=== PATIENT | female | born 1960 | race Caucasian/White ===

== ENCOUNTER 2024-07-15 12:07 | Inpatient (IN) ==
[~2024-07-15 12:07] MED LIST: ATROPINE SULFATE 0.1 MG/ML 10ML SYR IV ONE; ETOMIDATE 2 MG/ML 20 ML VIAL IV ONE; LIDOCAINE 2% 20 MG/ML 5 ML SYR IV ONE; MIDAZOLAM HCL 5 MG/ML 2ML VIAL IV ONE; SODIUM BICARB 8.4% INJ 50 MEQ/50 ML SYR IV ONE; SODIUM CHLORIDE 0.9% 10ML FLUSH IV ONE; SUCCINYLCHOLINE CHLORIDE 20 MG/ML 10 ML VIAL IV ONE
--- NOTE | 2024-07-15 12:15 | Emergency Department Note ---
Impression & Plan ST elevation (STEMI) myocardial infarction, Chest pain ED Provider Note HISTORY OF PRESENT ILLNESS: Patient is a 64-year-old female presenting with chest pain. Patient was a prehospital heart alert based on EKG done prehospital which showed ST elevations in leads V2 through V5 6. Patient states she got up this morning and then around 10 AM she developed a significant pressure sensation in her substernal chest. Reports symptoms continued and she called 911. She was found to to have an EKG with ST elevations prehospital. She was given 324 mg of oral aspirin and was given nitroglycerin per protocols, with little relief in her chest pain. On arrival to the ER, she locates the pain to the substernal region and states it radiates into her back. Denies any significant shortness of breath. She is on Coumadin for history of liver thrombus. She states her last dose was last night. Denies any nausea or vomiting. Denies any history of cardiac stents. She currently rates the pain a 9 out of 10. ROS: as above PHYSICAL EXAM: Constitutional: Patient appears in no acute distress. HENT: Head: Normocephalic and atraumatic. Eyes: EOMI, PERRL Mouth/Throat: Mucous membranes moist. Neck: Trachea midline. Neck supple. Cardiovascular: RRR, No murmurs, rubs or gallops. Intact distal pulses. Pulmonary/Chest: No respiratory distress. Breath sounds clear and equal bilaterally. No wheezes or rales. Abdominal: Abdomen soft, no tenderness, rebound or guarding. Musculoskeletal: No edema, tenderness or deformity noted. Skin: Warm and dry. No rash, erythema, pallor or cyanosis Psychiatric: Appropriate mood and affect for situation. Neurological: Alert and keenly responsive. CN II-XII grossly intact, moving all extremities equally and fully. MDM: - Vitals signs stable - History obtained via patient. History as above. - Patient alerted as a HEART alert patient based on pre-hospital EKG showing STEMI. - Chronic conditions affecting care: CKD; HTN; HLD; hypothyroidism; CAD; hx of liver thrombus - Differential diagnoses include, but are not limited to: Acute coronary syndrome; pulmonary embolism; dissection; tension pneumothorax; esophageal rupture; pneumonia - Order placed for continuous cardiac monitoring. At this time, monitor showed rate of 91 bpm with normal sinus rhythm, per my interpretation. - External medical records reviewed. Anticoagulation note dated 06/22/2024 was reviewed. Patient's INR is therapeutic at 3.0 at that visit. - Prehospital EKG obtained at 11:39 AM interpreted by myself showed normal sinus rhythm. Noted to have ST elevations in leads V2 through V6. - Discussed case with ground support equipment fitter, Dr. Mora, at 12:00. - EKG interpreted by myself showed normal sinus rhythm. Noted to have ST elevations in the 2 through V6. - Laboratory workup interpreted by myself showed normal WBC; stable electrolytes; elevated troponin (1165.5) - Hospitalist consulted for admission post laborer heading procedure. - Patient was taken to the Backup Operator with ground support equipment fitter, Dr. Mora. To be admitted to hospital service postcatheterization. I have personally spent 33 minutes of critical care time in the direct management of this patient. This includes bedside care, interpretation of diagnostic studies, and testing, discussion with consultants, patient, and family members, and other required patient management activities. This 33 minutes is in excess of all separately billable procedures. ASSESSMENT AND PLAN: Diagnosis: STEMI; chest pain Plan: to laborer heading Past Med/Surg History Problem List (Updated 07/15/24 @ 12:41 by Karely Chao PA-C) STEMI (ST elevation myocardial infarction) Urgency incontinence Kidney stones hx Anemia PAUL (acute kidney injury) Obesity Hypersomnia Suspected sleep apnea Acid reflux Nausea & vomiting Atherogenic dyslipidemia Hypomagnesemia Epigastric burning sensation Anxiety and depression HLD (hyperlipidemia) Hypokalemia Hypothyroidism (Chronic) Chronic anticoagulation (Chronic) Cigarette smoker Constipation Esophageal varices Diabetes mellitus Hypertension Lupus anticoagulant disorder CKD (chronic kidney disease) stage 3, GFR 30-59 ml/min Gastric varices Nonalcoholic fatty liver disease (Chronic) DDD (degenerative disc disease) Cirrhosis (Chronic) Medical History (Updated 07/15/24 @ 12:41 by Karely Chao PA-C) CAD (coronary artery disease) Optimized medical management per records Mild nonocclusive coronary disease in the past reported (details unknown) per cardio records Degenerative disc disease Hx of encephalopathy hx of hepatic encephalopathy Hx of thrombosis "liver" - reason for warfarin - pt unsure of year GERD (gastroesophageal reflux disease) Hx of temporomandibular joint disorder (03/27/23) hx of pain when opening, treated at [facility] emergency room on 03/27/23. no problems since. 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 Surgical History S/P cystoscopy with ureteral stent placement 02-02-24 @ [facility] History of dilatation and curettage x2 S/P debridement necrotizing fascitis debridement (multiple) Hx of umbilical hernia repair x3 History of esophagogastroduodenoscopy (EGD) History of colonoscopy History of cataract surgery bilateral History of cervical spinal surgery with hardware (fusion unsure of levels) limited ROM side to side History of cardiac catheterization ~2015 in [facility] - no stents Family History Sister History of anesthesia reaction has difficulty waking up (never re-intubated) and PONV Denies family history of Ovarian cancer Crohn's disease Breast cancer Colorectal cancer Ulcerative colitis Social History Smoking Status: Current every day smoker Tobacco Type: Cigarettes packs per day: 0.5; Cigarettes Per Day: 10 (advised on policy); Second Hand Exposure: Yes; Do You Dip or Chew Tobacco: No; Hx Alcohol Use: No Hx Substance Use: No Preferred Language: Welsh Travel Cota Required: No Beliefs That Will Affect Care: None marital status: Current Living Situation: Spouse current occupational status: retired Feels Safe at Home: Yes Childhood Exposure to Second-Hand Smoke: Yes caffeine: Yes Dental Care, Regularly: No Assistive Devices: Denture - Upper, Denture - Lower, Glasses and Walker Allergies Allergies Allergy/AdvReac Type Severity Reaction Status Date / Time adhesive Allergy Intermediate Rash Verified 06/12/24 13:56 enoxaparin [From Lovenox] Allergy Intermediate Rash Verified 06/12/24 13:56 NSAIDS (Non-Steroidal Allergy Unknown can't take Verified 06/12/24 13:56 Anti-Inflamma d/t taking a blood thinner nadolol AdvReac Severe Seizure Verified 06/12/24 13:56 amoxicillin [From Augmentin] AdvReac Mild yeast Verified 06/12/24 13:56 infection clavulanic acid AdvReac Mild yeast Verified 06/12/24 13:56 [From Augmentin] infection Home Meds Home Medications Medication Instructions Recorded Confirmed baclofen 10 mg tablet 10 mg PO TID 06/04/22 06/22/24 lactulose 10 gram/15 mL oral 10 g PO QDL PRN Constipation 09/24/22 06/22/24 solution magnesium oxide 400 mg PO QAM 03/27/23 06/22/24 Previous Rx's Medication Instructions Recorded pantoprazole 40 mg tablet,delayed 40 mg PO BID #180 tabs 09/29/23 release hydrochlorothiazide 12.5 mg tablet 12.5 mg PO QAM #90 tabs 02/16/24 loratadine 10 mg tablet 10 mg PO QAM #90 tabs 03/16/24 oxybutynin chloride 5 mg tablet 5 mg PO QAM #90 tabs 03/16/24 famotidine 40 mg tablet 40 mg PO DAILY PRN breakthrough 04/13/24 acid reflux #30 tabs atorvastatin 10 mg tablet 10 mg PO QPM #90 tabs 05/09/24 citalopram 10 mg tablet 10 mg PO QAM #90 tabs 05/09/24 gabapentin 100 mg capsule 100 mg PO Q8H 90 days #270 caps 05/09/24 levothyroxine 112 mcg tablet 112 mcg PO QAM #90 tabs 05/09/24 lisinopril 2.5 mg tablet 2.5 mg PO QAM #100 tabs 05/09/24 metformin 1,000 mg tablet 1,000 mg PO BID 100 days #200 tabs 05/09/24 dulaglutide 0.75 mg/0.5 mL 0.75 mg (0.5 mL) subcut Q7D #2 mL 06/08/24 subcutaneous pen injector (Trulicity) potassium chloride 20 mEq 20 meq PO QAM #90 tabs 06/08/24 tablet,extended release(part/cryst) (Klor-Con M) warfarin 5 mg tablet See Rx Instructions PO UD #40 tabs 06/09/24 warfarin 2.5 mg tablet See Rx Instructions PO UD #50 tabs 06/13/24 Results & Data (ED) Vital Signs Vital Signs - 24 hr 07/15/24 12:10 07/15/24 12:10 07/15/24 12:21 Pulse Rate 95 H 94 H Pulse Rate from SpO2 Sensor 94 H Respiratory Rate 22 20 Respiratory Effort / Characteristics Non-Labored Spontaneous Respiratory Depth Normal Respiratory Pattern Regular Blood Pressure 131/87 129/87 Blood Pressure Mean 101 101 Pulse Oximetry 100 98 Oxygen Delivery Method Room Air Room Air Sepsis Recent Fever Within 48 Hours No Sepsis New/Unexplained Change in Mental Status N/A Sepsis Action Taken by Nursing No Action Required 07/15/24 12:26 07/15/24 12:37 Pulse Rate 91 H Pulse Rate from SpO2 Sensor Respiratory Rate Respiratory Effort / Characteristics Respiratory Depth Respiratory Pattern Blood Pressure Blood Pressure Mean Pulse Oximetry Oxygen Delivery Method Room Air Sepsis Recent Fever Within 48 Hours Sepsis New/Unexplained Change in Mental Status Sepsis Action Taken by Nursing Laboratory Data 07/15/24 12:20 07/15/24 12:20 Lab Results 07/15/24 07/15/24 Range/Units 12:20 12:21 WBC 7.32 (4.8-10.8) K/ul RBC 4.24 (4.20-5.40) M/uL Hgb 12.8 (12.0-16.0) g/dl POC Hgb 12.6 (12.0-16.0) g/dl Hct 38.1 (37.0-47.0) % POC Hct 37 (37-47) % MCV 89.9 (80.0-100.0) fL MCH 30.2 (25.0-34.0) pg MCHC 33.6 (32.0-36.0) g/dL RDW Std Deviation 47.8 H (36.4-46.3) fL RDW Coeff of Angelica 14.6 H (11.5-14.5) % Plt Count 183 (130-400) K/uL MPV 10.1 (9.4-12.4) fL Immature Gran % (Auto) 0.5 % Neut % (Auto) 75.1 % Lymph % (Auto) 17.6 % Crowley % (Auto) 4.4 % Eos % (Auto) 2.0 % Baso % (Auto) 0.4 % Neut # (Auto) 5.49 (1.40-6.50) K/uL Lymph # (Auto) 1.29 (1.20-3.40) K/uL Crowley # (Auto) 0.32 (0.11-0.59) K/uL Eos # (Auto) 0.15 (0.00-0.50) K/uL Baso # (Auto) 0.03 (0.00-0.20) K/uL Immature Gran # (Auto) 0.04 (0.01-0.20) K/uL PT 22.8 H (9.0-12.0) Seconds INR 2.3 H (0.9-1.1) POC Sodium 143 (135-144) mmol/L Sodium 143 (136-145) mmol/L POC Potassium 4.1 (3.3-5.0) mmol/L Potassium 4.1 (3.5-5.1) mmol/L POC Chloride 105 (101-112) mmol/L Chloride 105 (98-107) mmol/L Carbon Dioxide 24 (21-32) mmol/L POC Total CO2 21 L (24-31) mmol/L Anion Gap 14 H (3-11) POC Anion Gap 22.0 (16-25) mmol/L POC BUN 27 H (7-18) mg/dl BUN 27 H (6-23) mg/dl Creatinine 1.47 H (0.6-1.2) mg/dl POC Creatinine 1.6 H (0.6-1.3) mg/dl Est Cr Clr Drug Dosing 46.4 ml/min eGFR 39.13 BUN/Creatinine Ratio 18.4 (10-20) Glucose 200 H (70-99(Fasting)) mg/dl POC Glucose (other) 197 H (70-99) mg/dl Calcium 10.2 (8.6-10.3) mg/dl POC Ioniz Calcium Minnie 1.09 L (1.12-1.32) mmol/l Total Bilirubin 0.9 (0.2-1.0) mg/dl AST 27 (13-39) U/L ALT 11 (7-52) U/L Alkaline Phosphatase 61 (34-104) U/L Troponin I High Sens 1165.6 H* (0-14) pg/ml Total Protein 7.3 (6.0-8.3) gm/dl Albumin 4.3 (3.4-5.0) gm/dl Globulin 3.0 (2.5-4.0) gm/dl Albumin/Globulin Ratio 1.4 (0.9-2) Lipase 67 (11-82) U/L Administered Medications Discontinued Medications Fentanyl Citrate (Fentanyl Citrate Pf 100 Mcg/2 Ml Vial) Confirm Administered Dose 100 mcg .ROUTE .ST-MED ONE Stop: 07/15/24 12:12 Last Admin: 07/15/24 12:34 Dose: Not Given Documented By: LAURI Fentanyl Citrate (Fentanyl Citrate Pf 100 Mcg/2 Ml Vial) 25 mcg IV NOW STA Stop: 07/15/24 12:14 Last Admin: 07/15/24 12:19 Dose: 25 mcg Documented By: LAURI Discharge Plan Visit Data Chief Complaint: Heart Alert Stated Complaint: HEART ALERT ED Provider: Stephany Freed Discharge Problem: ST elevation (STEMI) myocardial infarction, Chest pain Patient Disposition: Admitted As Inpatient Discharge Instructions Interventions: ED Discharge Assessment Last Done: 07/15/24 12:37
[2024-07-15] MEDS: fentaNYL citrate PF 100 MCG/2 ML VIAL IV STA (12:19)
--- NOTE | 2024-07-15 12:21 | History & Physical Report ---
<Statement entered by Mat Sethi MD - 07/15/24 17:13> This is a 64-year-old female with benign essential hypertension, hyperlipidemia, [id number] diabetes mellitus type 2, cirrhosis due to fatty liver diagnosed in 2009, CKD stage III, portal vein thrombosis on Coumadin who presented with acute 10 out of 10 chest pain. EKG was concerning for acute ST elevation OR. Heart alert activated en route. Patient was seen by igniter capper emergently and decision was made to take her to the [facility]. During my encounter, the patient was able to talk to me and did not seem to have severe chest pain. Her pain was down to 4/10 after she received fentanyl. While the patient was in the [facility], a CODE BLUE was called. She was coded for about 7 minutes. Was in V-fib arrest on the table. Intubated. She ended up having 4 stents to LAD. She was sent to the ICU on nor epi, epi and amiodarone drip. Wood Gang Sawyer was consulted. She is currently on a propofol drip. A central line was going to be placed when I saw the patient in the ICU. 1. Anterior wall ST elevation OR Status post LAD stent On amiodarone drip for V-fib/V. tach arrest Was loaded with ticagrelor Will need to be on dual antiplatelet agents for 1 year Was already on Coumadin for portal vein thrombosis On high-dose statin 2. Cardiac arrest This was due to V-fib/V-tach arrest due to coronary artery obstruction Now stented LAD Intubated Wood Gang Sawyer involved I agree with the note as written by Karely Chao. I discussed the case and the plan with Karely. Date of Service July 15, 2024 Assessment & Plan (1) STEMI (ST elevation myocardial infarction): Plan: This is a 64-year-old female with past medical history of anemia, PAUL, hypothyroidism, type 2 diabetes, CKD stage III, cirrhosis who presented to the ER as a heart alert on 07/15/2024. Patient underwent cardiac cath and was sent to ICU following for further care. On statin, Lisinopril, HCTZ outpatient for HLD and HTN. ASA and nitroglycerin given via EMS. Fentayl provided in ED. EKG: ST elevations in leads V2- V6 Troponin 1165.6 Last Echo 10/2023: 55-60% EF. Grade I diastolic dysfunction. Cardiology following - catheterization with Dr. Mora 07/15. Code Blue alert while in lab. Patient was intubated and sedated. CBC WNL PT/INR: 22.8/2.3 Patient on chronic Coumadin for hx of portal vein thrombosis. did not take her AM dose today. - reports she takes this in the evening. CMP: creatinine 1.47, electrolytes stable. Lipase: WNL CXR pending AM CBC, BMP, magnesium (2) DM type 2 (diabetes mellitus, type 2): Plan: Last A1c 12/2023: 6.6% On Metformin 1000mg BID and Trulicity outpatient. Sliding scale while inpatient Novolog Goal: 110-160mg CF: 20 Tailor as needed AM A1c Plan Chronic conditions: - medications on hold while intubated and sedated in ICU. Hypothyroidism: Levothyroxine Cirrhosis: Lactulose GERD: PPI, Pepcid prn. Diet: NPO, currently intubated/sedated Code status: full Disposition: Admit to ICU. History of Present Illness Primary Care Provider: Manuel Goodrich DO This is a 64-year-old female with past medical history of anemia, PAUL, hypothyroidism, type 2 diabetes, CKD stage III, cirrhosis who presented to the ER as a heart alert on 07/15/2024. The patient awoke from bed this morning and got up around 10 AM. She then developed significant pressure sensation in her substernal chest area. Symptoms persisted and so she called 911. She was found to have an EKG with ST elevations prehospital in leads V2 through V6. She was given 324 mg of oral aspirin and nitroglycerin. She was also given fentanyl while in the ED with little relief in her chest pain. She is on Coumadin for history of portal vein thrombosis. She denied any nausea or vomiting at time of encounter. Past cardiac history includes atypical chest pain and a catheterization at [facility] approx. 10 years ago. While in the ED patient normotensive, slightly tachycardic with pulse of 91, O2 saturation 98% on room air. She appeared comfortable in bed. Allergies Allergy/AdvReac Type Severity Reaction Status Date / Time adhesive Allergy Intermediate Rash Verified 06/12/24 13:56 enoxaparin [From Lovenox] Allergy Intermediate Rash Verified 06/12/24 13:56 NSAIDS (Non-Steroidal Allergy Unknown can't take Verified 06/12/24 13:56 Anti-Inflamma d/t taking a blood thinner nadolol AdvReac Severe Seizure Verified 06/12/24 13:56 amoxicillin [From Augmentin] AdvReac Mild yeast Verified 06/12/24 13:56 infection clavulanic acid AdvReac Mild yeast Verified 06/12/24 13:56 [From Augmentin] infection Home Medications Medication Instructions Recorded Confirmed Type baclofen 10 mg tablet 10 mg PO TID 06/04/22 06/22/24 History lactulose 10 gram/15 mL oral 10 g PO QDL PRN Constipation 09/24/22 06/22/24 History solution magnesium oxide 400 mg PO QAM 03/27/23 06/22/24 History pantoprazole 40 mg tablet,delayed 40 mg PO BID #180 tabs 09/29/23 06/22/24 Rx release hydrochlorothiazide 12.5 mg tablet 12.5 mg PO QAM #90 tabs 02/16/24 06/22/24 Rx loratadine 10 mg tablet 10 mg PO QAM #90 tabs 03/16/24 06/22/24 Rx oxybutynin chloride 5 mg tablet 5 mg PO QAM #90 tabs 03/16/24 06/22/24 Rx famotidine 40 mg tablet 40 mg PO DAILY PRN breakthrough 04/13/24 06/22/24 Rx acid reflux #30 tabs atorvastatin 10 mg tablet 10 mg PO QPM #90 tabs 05/09/24 06/22/24 Rx citalopram 10 mg tablet 10 mg PO QAM #90 tabs 05/09/24 06/22/24 Rx gabapentin 100 mg capsule 100 mg PO Q8H 90 days #270 caps 05/09/24 06/22/24 Rx levothyroxine 112 mcg tablet 112 mcg PO QAM #90 tabs 05/09/24 06/22/24 Rx lisinopril 2.5 mg tablet 2.5 mg PO QAM #100 tabs 05/09/24 06/22/24 Rx metformin 1,000 mg tablet 1,000 mg PO BID 100 days #200 tabs 05/09/24 06/22/24 Rx dulaglutide 0.75 mg/0.5 mL 0.75 mg (0.5 mL) subcut Q7D #2 mL 06/08/24 06/22/24 Rx subcutaneous pen injector (Trulicity) potassium chloride 20 mEq 20 meq PO QAM #90 tabs 06/08/24 06/22/24 Rx tablet,extended release(part/cryst) (Klor-Con M) warfarin 5 mg tablet See Rx Instructions PO UD #40 tabs 06/09/24 06/22/24 Rx warfarin 2.5 mg tablet See Rx Instructions PO UD #50 tabs 06/13/24 06/22/24 Rx Past Med/Surg History Problem List (Updated 07/15/24 @ 12:41 by Karely Chao PA-C) STEMI (ST elevation myocardial infarction) Urgency incontinence Kidney stones hx Anemia PAUL (acute kidney injury) Obesity Hypersomnia Suspected sleep apnea Acid reflux Nausea & vomiting Atherogenic dyslipidemia Hypomagnesemia Epigastric burning sensation Anxiety and depression HLD (hyperlipidemia) Hypokalemia Hypothyroidism (Chronic) Chronic anticoagulation (Chronic) Cigarette smoker Constipation Esophageal varices Diabetes mellitus Hypertension Lupus anticoagulant disorder CKD (chronic kidney disease) stage 3, GFR 30-59 ml/min Gastric varices Nonalcoholic fatty liver disease (Chronic) DDD (degenerative disc disease) Cirrhosis (Chronic) Medical History (Updated 07/15/24 @ 12:41 by Karely Chao PA-C) CAD (coronary artery disease) Optimized medical management per records Mild nonocclusive coronary disease in the past reported (details unknown) per cardio records Degenerative disc disease Hx of encephalopathy hx of hepatic encephalopathy Hx of thrombosis "liver" - reason for warfarin - pt unsure of year GERD (gastroesophageal reflux disease) Hx of temporomandibular joint disorder (03/27/23) hx of pain when opening, treated at [facility] emergency room on 03/27/23. no problems since. 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 Surgical History S/P cystoscopy with ureteral stent placement 02-02-24 @ [facility] History of dilatation and curettage x2 S/P debridement necrotizing fascitis debridement (multiple) Hx of umbilical hernia repair x3 History of esophagogastroduodenoscopy (EGD) History of colonoscopy History of cataract surgery bilateral History of cervical spinal surgery with hardware (fusion unsure of levels) limited ROM side to side History of cardiac catheterization ~2015 in [facility] - no stents Family History Sister History of anesthesia reaction has difficulty waking up (never re-intubated) and PONV Denies family history of Ovarian cancer Crohn's disease Breast cancer Colorectal cancer Ulcerative colitis Social History Smoking Status: Current every day smoker Tobacco Type: Cigarettes packs per day: 0.5; Cigarettes Per Day: 10 (advised on policy); Second Hand Exposure: Yes; Do You Dip or Chew Tobacco: No; Hx Alcohol Use: No Hx Substance Use: No Preferred Language: Wolof Online Marketing Manager Required: No Beliefs That Will Affect Care: None marital status: Current Living Situation: Spouse current occupational status: retired Feels Safe at Home: Yes Childhood Exposure to Second-Hand Smoke: Yes caffeine: Yes Dental Care, Regularly: No Assistive Devices: Denture - Upper, Denture - Lower, Glasses and Walker Physical Exam 2 Constitutional: WD/WN, vitals as above Eyes: PERRL, conjunctivae normal, anicteric sclerae Respiratory: no respiratory distress. Psychiatric: A+Ox3, euthymic affect Results & Data Results & Data Vital Signs (Past 12 Hours) Vital Signs Pulse Resp BP Pulse Ox O2 Del Method 07/15/24 12:10 Room Air 07/15/24 12:10 95 H 22 131/87 100 Room Air Laboratory Results 07/15/24 12:20 07/15/24 12:20 PG Care Time/CCT Total # of Minutes Spent Total Time Spent with Patient: Total time spent is greater than 50% in coordination of care (as documented) at patient's floor/unit and/or counseling patient: Coding Level of Care Code 56777 INT INP/OBS CARE 2MIN Diagnoses STEMI (ST elevation myocardial infarction) I21.3 DM type 2 (diabetes mellitus, type 2) E11.9
[2024-07-15 12:33] LABS: iSTAT Creatinine 1.6 mg/dl (0.6-1.3); iSTAT Hemoglobin 12.6 g/dl (12.0-16.0); iSTAT Ionized Calcium 1.09 mmol/l (1.12-1.32); iSTAT Potassium 4.1 mmol/L (3.3-5.0)
[2024-07-15] MEDS: fentaNYL citrate PF 100 MCG/2 ML VIAL ONE ×2 (12:34→15:26)
[2024-07-15 12:38] LABS: Basophils # (auto) 0.03 K/uL (0.00-0.20); Basophils % (auto) 0.4 %; Eosinophils # (auto) 0.15 K/uL (0.00-0.50); Hematocrit (blood only) 38.1 % (37.0-47.0); Hemoglobin 12.8 g/dl (12.0-16.0); Immature Granulocytes # (auto) 0.04 K/uL (0.01-0.20); Immature Granulocytes % (auto) 0.5 %; Lymphocytes # (auto) 1.29 K/uL (1.20-3.40); Lymphocytes % (auto) 17.6 %; Mean Corpuscular Hemoglobin 30.2 pg (25.0-34.0); Mean Corpuscular Hgb Conc 33.6 g/dL (32.0-36.0); Mean Corpuscular Volume 89.9 fL (80.0-100.0); Mean Platelet Volume 10.1 fL (9.4-12.4); Monocytes # (auto) 0.32 K/uL (0.11-0.59); Monocytes % (auto) 4.4 %; Neutrophils # (auto) 5.49 K/uL (1.40-6.50); Neutrophils % (auto) 75.1 %; Platelet Count 183 K/uL (130-400); RDW Coefficient of Variation 14.6 % (11.5-14.5); RDW Standard Deviation 47.8 fL (36.4-46.3); Red Blood Count 4.24 M/uL (4.20-5.40); White Blood Count 7.32 K/ul (4.8-10.8)
--- NOTE | 2024-07-15 12:40 | Pre Anesthesia Assessment ---
Date of Service July 15, 2024 Pre Sedation Assessment Vital Signs Pulse Resp BP Pulse Ox O2 Del Method 07/15/24 12:37 Room Air 07/15/24 12:26 91 H 07/15/24 12:21 94 H 20 129/87 98 07/15/24 12:10 Room Air 07/15/24 12:10 95 H 22 131/87 100 Room Air Cardiovascular + regular rate Respiratory + respiratory effort normal Pre-Sedation Airway Assessment Smoking Status: Current every day smoker Hx Sleep Apnea: No Hx Difficult Intubation: No Short, Thick Neck: No Thyromental Distance: < 3.5 Finger Breadths Oral Cavity: + Dental Abnormalities Mallampati Class: III ASA: ASA3 Procedure Planning Contraindications for Sedation: none Current Medications Reviewed: Yes Notes The planned sedation has been discussed with the patient. Informed Consent was obtained. I have identified the patient, determined the appropriateness of sedation and have assessed the patient immediately prior to the procedure. All medicine(s) and interventions are by my order.
--- NOTE | 2024-07-15 12:49 | Cardiology Consultation ---
Date of Consultation July 15, 2024 Assessment & Plan (1) STEMI (ST elevation myocardial infarction): Presentation consistent with anterior STEMI and recommend proceeding with emergent cardiac catheterization and likely primary PCI. No apparent contraindications to procedure. Discussed risks, benefits, alternatives of procedure with patient and they are willing to proceed. Further recommendations pending findings of coronary angiography. History of Present Illness History of Present Illness 64-year-old woman here with acute chest pain and ECG concerning for acute CO. Patient seen emergently in the ED after heart alert activated en route. Her primary griddle cook is Dr. Ortiz. Previously received cardiac care from Dr. Howe. Past cardiac history remarkable for atypical chest pain, remote cardiac catheterization at [facility] maybe 10 years ago. Echo 12/2022 showed EF 55%, no valve disease. Low risk Lexiscan SPECT 12/2022 with apical perfusion defect thought breast artifact. Cardiac risk factors include type 2 diabetes, hypertension, dyslipidemia, chronic kidney disease, obesity, LUCRETIA, ongoing smoker. Other medical issues include esophageal/gastric varices, positive lupus anticoagulant with prior portal vein thrombosis on chronic warfarin. Chest pain began acutely approximately 10 AM this morning, approximately 2 hours prior to arrival while using the bathroom. Describes severe 10 out of 10 substernal pain with associated nausea/vomiting and diaphoresis. Denies similar symptoms in the past. Given nitroglycerin, aspirin in route. Chest pain 4/10 after fentanyl. Hemodynamically stable. EKG showed sinus rhythm with PVCs, anterior ST elevations and right bundle branch block. Social history: , 3 kids Family history: Father with CAD in 50s Allergies Allergy/AdvReac Type Severity Reaction Status Date / Time adhesive Allergy Intermediate Rash Verified 06/12/24 13:56 enoxaparin [From Lovenox] Allergy Intermediate Rash Verified 06/12/24 13:56 NSAIDS (Non-Steroidal Allergy Unknown can't take Verified 06/12/24 13:56 Anti-Inflamma d/t taking a blood thinner nadolol AdvReac Severe Seizure Verified 06/12/24 13:56 amoxicillin [From Augmentin] AdvReac Mild yeast Verified 06/12/24 13:56 infection clavulanic acid AdvReac Mild yeast Verified 06/12/24 13:56 [From Augmentin] infection Home Medications Medication Instructions Recorded Confirmed Type baclofen 10 mg tablet 10 mg PO TID 06/04/22 06/22/24 History lactulose 10 gram/15 mL oral 10 g PO QDL PRN Constipation 09/24/22 06/22/24 History solution magnesium oxide 400 mg PO QAM 03/27/23 06/22/24 History pantoprazole 40 mg tablet,delayed 40 mg PO BID #180 tabs 09/29/23 06/22/24 Rx release hydrochlorothiazide 12.5 mg tablet 12.5 mg PO QAM #90 tabs 02/16/24 06/22/24 Rx loratadine 10 mg tablet 10 mg PO QAM #90 tabs 03/16/24 06/22/24 Rx oxybutynin chloride 5 mg tablet 5 mg PO QAM #90 tabs 03/16/24 06/22/24 Rx famotidine 40 mg tablet 40 mg PO DAILY PRN breakthrough 04/13/24 06/22/24 Rx acid reflux #30 tabs atorvastatin 10 mg tablet 10 mg PO QPM #90 tabs 05/09/24 06/22/24 Rx citalopram 10 mg tablet 10 mg PO QAM #90 tabs 05/09/24 06/22/24 Rx gabapentin 100 mg capsule 100 mg PO Q8H 90 days #270 caps 05/09/24 06/22/24 Rx levothyroxine 112 mcg tablet 112 mcg PO QAM #90 tabs 05/09/24 06/22/24 Rx lisinopril 2.5 mg tablet 2.5 mg PO QAM #100 tabs 05/09/24 06/22/24 Rx metformin 1,000 mg tablet 1,000 mg PO BID 100 days #200 tabs 05/09/24 06/22/24 Rx dulaglutide 0.75 mg/0.5 mL 0.75 mg (0.5 mL) subcut Q7D #2 mL 06/08/24 06/22/24 Rx subcutaneous pen injector (Trulicity) potassium chloride 20 mEq 20 meq PO QAM #90 tabs 06/08/24 06/22/24 Rx tablet,extended release(part/cryst) (Klor-Con M) warfarin 5 mg tablet See Rx Instructions PO UD #40 tabs 06/09/24 06/22/24 Rx warfarin 2.5 mg tablet See Rx Instructions PO UD #50 tabs 06/13/24 06/22/24 Rx Patient History Medical History (Updated 07/15/24 @ 12:41 by Karely Chao PA-C) CAD (coronary artery disease) Optimized medical management per records Mild nonocclusive coronary disease in the past reported (details unknown) per cardio records Degenerative disc disease Hx of encephalopathy hx of hepatic encephalopathy Hx of thrombosis "liver" - reason for warfarin - pt unsure of year GERD (gastroesophageal reflux disease) Hx of temporomandibular joint disorder (03/27/23) hx of pain when opening, treated at [facility] emergency room on 03/27/23. no problems since. 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 Surgical History S/P cystoscopy with ureteral stent placement 02-02-24 @ [facility] History of dilatation and curettage x2 S/P debridement necrotizing fascitis debridement (multiple) Hx of umbilical hernia repair x3 History of esophagogastroduodenoscopy (EGD) History of colonoscopy History of cataract surgery bilateral History of cervical spinal surgery with hardware (fusion unsure of levels) limited ROM side to side History of cardiac catheterization ~2015 in [facility] - no stents Family History Sister History of anesthesia reaction has difficulty waking up (never re-intubated) and PONV Denies family history of Ovarian cancer Crohn's disease Breast cancer Colorectal cancer Ulcerative colitis Social History Smoking Status: Current every day smoker Tobacco Type: Cigarettes packs per day: 0.5; Cigarettes Per Day: 10 (advised on policy); Second Hand Exposure: Yes; Do You Dip or Chew Tobacco: No; Hx Alcohol Use: No Hx Substance Use: No Preferred Language: Korean Zigzag Elastic Attacher Required: No Beliefs That Will Affect Care: None marital status: Current Living Situation: Spouse current occupational status: retired Feels Safe at Home: Yes Childhood Exposure to Second-Hand Smoke: Yes caffeine: Yes Dental Care, Regularly: No Assistive Devices: Denture - Upper, Denture - Lower, Glasses and Walker Review of Systems Review of Systems: Not completed in the setting of emergent situation Physical Exam Physical Exam: General: Uncomfortable HEENT: Sclerae anicteric Lungs: Anteriorly clear Cardiac: Tachycardic, regular, no murmurs Vascular: 2+ radial Abdomen: Soft, nontender Extremities: Well perfused, no peripheral edema Neuro: Nonfocal Psych: Alert orient x3, normal affect and mood Results & Data Vital Signs (Past 12 Hours) Vital Signs Pulse Resp BP Pulse Ox O2 Del Method 07/15/24 12:37 Room Air 07/15/24 12:26 91 H 07/15/24 12:21 94 H 20 129/87 98 07/15/24 12:10 Room Air 07/15/24 12:10 95 H 22 131/87 100 Room Air PG Care Time/CCT Total # of Minutes Spent Total Time Spent with Patient: Total time spent is greater than 50% in coordination of care (as documented) at patient's floor/unit and/or counseling patient: Coding Level of Care Code 20554 ER DEPT VISIT MOD LVL 4 Diagnoses STEMI (ST elevation myocardial infarction) I21.3
[2024-07-15 12:57] LABS: Albumin Globulin Ratio 1.4 (0.9-2); Albumin Level 4.3 gm/dl (3.4-5.0); BUN Creatinine Ratio 18.4 (10-20); Bilirubin,Total 0.9 mg/dl (0.2-1.0); Calcium 10.2 mg/dl (8.6-10.3); Creatinine Clr Calc Pharmacy 46.4 ml/min; Potassium 4.1 mmol/L (3.5-5.1); Total Protein 7.3 gm/dl (6.0-8.3)
[2024-07-15 13:07] LABS: INR 2.3 (0.9-1.1); Prothrombin Time 22.8 Seconds (9.0-12.0)
[2024-07-15 13:20] LABS: Troponin I High Sensitivity 1165.6 pg/ml (0-14)
--- NOTE | 2024-07-15 13:23 | Emergency Department Note ---
ED Visit Note Patient was taken up to the Legal Activity Adjudicator as a STEMI from the ER. Please see ER visit note. Patient was alerted as a CODE BLUE while up in the Legal Activity Adjudicator. She had compressions in process on my arrival. She is being ventilated with a [id number]. ROSC was successfully achieved and senior software development engineer proceeded with attempting to stent to the patient's coronary artery. Patient becoming difficult to bag and still unresponsive post ROSC. Decision was made to intubate. She was intubated without any RSI medications with a 7.5 ET tube. Please see procedure note below. However, after that she was passed through the vocal cords, the patient started to have a gag reflex and started become difficult to bag. She given 20 mg of etomidate, 100 mg of succinylcholine and 10 mg of IV Versed for sedation and paralysis. Patient noted to be hypoxic and she was disconnected from the ventilator and [id number] was utilized. She has notable good breath sounds bilaterally. Given that she is in the Legal Activity Adjudicator, unable to perform a chest x-ray to confirm tube placement. However, ET tube is fogging and has good color change on intubation. She has notable breath sounds bilaterally. Concern that her hypoxia was secondary to not being appropriately sedated. Patient was given additional 50 mcg of IV fentanyl ordered by myself for sedation in the Legal Activity Adjudicator while procedure was ongoing. Repeat pulse ox reading 98 to 100%. She was transition back to the ventilator. Procedure: Endotracheal Intubation Indication: CODE BLUE; unresponsive The patient was on 100% oxygen via NRB prior to the procedure. Suction, airway equipment, RSI drugs, respiratory equipment, and appropriate personnel were prepared prior to the initiation of the procedure. The airway was easily visualized utilizing a S3 blade on the GlideScope. A 7.5 size ETT tube was placed atraumatically to 23 cm using standard technique. The cuff inflated without signs of malfunction. There were bilateral breath sounds, positive colormetric change, no gastric sounds, a good capnography waveform, and post procedure pulse oximetry was 80%. Patient was administered 20 mg of etomidate, 100 mg of succinylcholine and 10 mg of IV Versed for sedation and paralysis postintubation. [id number] was utilized with improvement in her saturations and she was transitioned to the ventilator. .
[2024-07-15 13:32] LABS: iSTAT Arterial Blood Gas HCO3 18 meg/L (19-24); iSTAT Arterial Blood Gas pCO2 51 mmHg (35-46); iSTAT Arterial Blood Gas pH 7.16 (7.35-7.45); iSTAT Arterial Blood Gas pO2 272 mmHg (80-95); iSTAT Carbon Dioxide 19 mmol/L (24-31); iSTAT Hematocrit 34 % (37-47); iSTAT Hemoglobin 11.6 g/dl (12.0-16.0); iSTAT Potassium 3.4 mmol/L (3.3-5.0); iSTAT Sodium 137 mmol/L (135-144)
[2024-07-15 14:22] LABS: iSTAT Arterial Blood Gas HCO3 22 meg/L (19-24); iSTAT Arterial Blood Gas pCO2 53 mmHg (35-46); iSTAT Arterial Blood Gas pH 7.22 (7.35-7.45); iSTAT Arterial Blood Gas pO2 54 mmHg (80-95); iSTAT Carbon Dioxide 23 mmol/L (24-31); iSTAT Hematocrit 34 % (37-47); iSTAT Hemoglobin 11.6 g/dl (12.0-16.0); iSTAT Potassium 3.2 mmol/L (3.3-5.0); iSTAT Sodium 142 mmol/L (135-144)
[2024-07-15] MEDS ORDERED: STAT IV Infusion **Titration per Protocol STA ×4 (14:34→18:19)
--- NOTE | 2024-07-15 14:39 | Post Anesthesia Assessment ---
Date of Service July 15, 2024 Post Sedation Assessment Vital Signs Pulse Resp BP Pulse Ox O2 Del Method FiO2 07/15/24 13:28 109 H 24 98 100 07/15/24 12:37 Room Air 07/15/24 12:26 91 H 07/15/24 12:21 94 H 20 129/87 98 07/15/24 12:10 Room Air 07/15/24 12:10 95 H 22 131/87 100 Room Air Recovery Score Activity: Moves 4 extremities Respiration: Deep Breath/Cough Circulation: +/-20% PreAnes Value Consciousness: Fully Awake Oxygen Saturation: O2 needed for >90% Discharge Sedation Level of Care: Higher Level of Care Post Sedation Plan On clinical assessment, the patient appears to have tolerated the sedation without complications. Patient is recovering as anticipated. Patient will continue to be monitored by nursing and may be discharged when sedation discharge criteria are met per below protocol. Upon Completions of procedure up to 15 minutes continue every 5 minute vital signs and the P.A.R. score; then discharge to a Phase I or Fast Track to Phase II per the following guidelines: * Discharge Patient to appropriate Phase II area if PAR is 8 or greater or return to pre- procedure baseline. The post - procedure orders will be as directed. * If PAR score is less than 8 or not return to pre-procedure baseline then patient will follow Phase I monitoring till PAR is reached for Phase II. The Phase I may be done in procedure room or may call to secure a Phase I area. * If naloxone or flumazenil are used for reversal, hold in Phase I for continued monitoring from when last reversal dose was given for a minimum of 60 minutes or longer pending the nurse and/or physician discretion of patient condition before discharge to Phase II. Please call the Sedation Physician to re-evaluate and complete post-note for discharge to Phase II area. Do NOT discharge from procedure sedation or Phase 1 until post- sedation evaluation note is complete by procedure /sedation MD Sedation Discharge Instructions to be given to the patient at discharge to home.
--- NOTE | 2024-07-15 14:42 | Cardiac Catheterization ---
[facility] Data: Disability Services Coordinator Cardiac Status Clinical evaluation leading to the procedure CAD Presenation: STEMI Anginal Classification: CCS IV Diagnostic Physicians Name: Bradford Mora MD Closure Device Recommendations: PCI without planned CABG Cardiac Cath Procedure Full Procedure Date July 15, 2024 Pre-Procedure Diagnosis Pre-Procedure Diagnosis: STEMI AUC Score AUC Score: 9 Post-Procedure Diagnosis Post-Procedure Diagnosis: Severe CAD, Successful PCI and Elevated Intracardiac Pressures Procedure(s) Performed Procedure(s) Performed: Coronary Angiography, Left Heart Cath, Right Heart Cath, Drug Eluting Stent, CPR, Defibrillation, Femoral Artery Angiography and Procedure (Radial Arterial line placement) Advertising Analyst Bradofrd Mora MD Oil Fire Specialist(s) Mati Estimated Blood Loss Estimated Blood Loss: 45 Medication(s) Medication(s): Epinephrine, Fentanyl, Heparin, Integrilin, Lidocaine 1%, Nicardipine, Nitroglycerin, Norepinephrine and Versed Summary of Findings Indication: STEMI/Heart Alert Access: 6 Fr right DAY CARE ASSISTANT, 7 Fr right CFV Catheters: EBU 3.5 guide, diagnostic JR4, 6 Fr [place] Findings: LM -normal caliber, 20% distal stenosis LAD -medium caliber, calcified, subtotal proximal LAD occlusion. After flow reestablished diffuse moderate mid LAD disease, 95% distal stenosis prior to vessel wrapping around the apex. Small D1 50% proximal. Small to medium D2 with 70% ostial stenosis. Circumflex -large caliber, 20 to 30% proximal, mid segment calcified with 20-30% disease. Medium OM 2, left PLB tortuous without significant disease. RCA -dominant, medium caliber, diffuse mid segment disease up to 50%. RPDA, PLB without significant disease. While getting prepped on Disability Services Coordinator table patient developed sustained VT/VF cardiac arrest Prolonged resuscitation (10-15 minutes) with >5 defibrillations, CPR, multiple rounds of epinephrine, amiodarone, lidocaine, magnesium, sodium bicarbonate. Patient intubated by Dr. Freed ROSC after initial angiography. Remained electrically stable for remainder of case. Maintained on norepinephrine, and epinephrine drips. -- PCI -- Antithrombotic therapy: Heparin, bolus Integrilin Procedure: Left main cannulated with EBU 3.5 guide Bass String Winder 50 wire passed across lesion into distal vessel Proximal to mid LAD lesion predilated with 2.5 compliant balloon Dilated lesion stented with 3.0 x 34 mm Nigel drug-eluting stent Stent post-dilated with 3.5 noncompliant balloon Stent well-expanded but PATRICA I flow distally in the setting of severe distal disease Distal LAD dilated with 2.0 balloon Distal LAD stented with 2.25 x 26 mm Nigel JORGE Stent postdilated with 2.5 NC Post second stent placement continued PATRICA I-II flow with diffuse mid segment disease and residual disease at distal aspect of second stent. No improvement with IC vasodilator Third JORGE (2.25 x 15 mm Nigel) placed to distal LAD overlapping distal aspect of second stent. Stent postdilated with stent balloon. Fourth JORGE (3.0 x 34 mm Nigel) placed to mid LAD overlapping distal aspect of first stent and proximal aspect of second stent. Stent postdilated with stent balloon to high atmospheres. Post procedure PATRICA 3 flow, stent well expanded with minimal residual stenosis and no apparent cardiac complications. Right heart cath RA 11 RV 43/11 PA 37/24 (30) PAWP 24 LVEDP 26 PaSat 81% AoSat 100% Shi CO/CI 9.5/4.5 Arterial Closure: TR band Summary: 1. VT/VF cardiac arrest 2. Anterior STEMIsubtotally occluded proximal LAD with diffuse mid and severe LAD disease 2. Mild to moderate non-culprit coronary artery disease -50% mid RCA 30% proximal/mid circumflex 70% ostial small to medium D2 3. Elevated left and right-sided filling pressures 4. Mild pulmonary hypertension (postcapillary) 5. Preserved cardiac output and RV function. 6. Successful PCI of proximal to distal LAD with 4 overlapping drug-eluting stents (3.0 x 34, 3.0 x 34, 2.25 x 26, 2.25 x 15 mm [place]; postdilated proximally with 3.5 NC). Recommendations: Admit to ICU for continued monitoring To be loaded with ticagrelor 180 mg in ICU Continue dual-antiplatelet therapy for at least 1 year. Trend troponins until peak, Check Echo Continue amiodarone infusion overnight On norepinephrine (0.3), epinephrine (0.1) drips. Check lactate. Wean able. Received 80mg IV lasix in cytology laboratory manager High-dose statin Hemodynamics Rest Ao:: 86/61/72 Final Ao: 112/77/82 LV: 95/62/76 Recommendations Recommendations: PCI without planned CABG Specimens Specimens: None Radiation Exposure (mGy) 3689 Contrast (mls) 140 Anesthesia Moderate 7212-2924 Procedural Complication(s) None Disposition ICU I attest to the content of the Intraoperative Record and any orders documented therein. Any exceptions are noted below. [facility] Card Cath Procedure Codes Cardiac Catheterization Procedure 1: Cardiovascular Cath Procedures: 61946 Coronaries & LHC (+/-LV) & RHC Therapeutic Services & Ancillary Procedure 1: Cardiovascular Tx and Anc Procedures: 60068 Code Blue/CPR Procedure 2: Cardiovascular Tx and Anc Procedures: 70869 Arterial Line Placement Moderate Sedation Procedure 1: Sedation/Anesthesia: 49426 Mod Sedation by the same physician;Init15 Min Child Age 5 & Up Procedure 2: Sedation/Anesthesia: 12515 Mod Sedation by the same physician; Ea [id number] Minutes Stenting Procedure 1: Cardiovascular Stent Procedures: 38650 Perc transluminal revascularization of acute sub/total occl, aMI PG Care Time/CCT Total # of Minutes Spent Total Time Spent with Patient: Total time spent is greater than 50% in coordination of care (as documented) at patient's floor/unit and/or counseling patient:
--- NOTE | 2024-07-15 15:14 | XRay Report ---
EXAM: X-ray chest one-view portable CLINICAL HISTORY: Evaluate lines post cath PRIORS: None TECHNIQUE: Frontal view chest FINDINGS: The endotracheal tube terminates approximately 6.2 cm superior to the [place]oria. A nasogastric tube is present within the [id number] with distal tip not at the edge of the [id number]. The chest is well-expanded. No airspace consolidation, effusion or congestive changes. Heart size is top normal. No pneumothorax. Osseous structures demonstrate no acute abnormality. IMPRESSION: Endotracheal tube terminating 6.2 cm superior to the victoria. No pneumothorax. Electronically signed by Luann Mane 07-15-2024 3:13 PM
[2024-07-15] MEDS ORDERED: fentaNYL BOLUS from BAG IV PRN ×2 (15:25)
[2024-07-15] MEDS ORDERED: MIDAZOLAM BOLUS FROM BAG IV PRN ×2 (15:25)
[2024-07-15] MEDS: HEPARIN (PORCINE) 1000 UNIT/ML 10 ML (CATH LAB USE ONLY) ONE (15:25)
[2024-07-15] MEDS: niCARdipine 2,000 MCG/20 ML SYR ONE (15:26)
[2024-07-15] MEDS: MIDAZOLAM HCL 1 MG/ML 2ML VIAL ONE ×3 (15:26→15:39)
[2024-07-15] MEDS: niCARdipine HCL INJ 2.5 MG/ML 10 ML AMP ONE (15:27)
[2024-07-15] MEDS: OPTIRAY 350 ONE (15:27)
[2024-07-15] MEDS: NITROGLYCERIN/D5W 100MCG/ML 20ML SYR ONE (15:28)
[2024-07-15] MEDS: AMIODARONE 150MG / 100ML D5W (CATH LAB USE ONLY) IV ONE (15:28)
[2024-07-15] MEDS: AMIODARONE HCL INJ 50 MG/ML 3 ML VIAL (CATH LAB USE ONLY) IV ONE (15:28)
[2024-07-15] MEDS: NOREPINEPHRINE/D5W 4 MG/250 ML IV ONE (15:29)
[2024-07-15] MEDS: SODIUM BICARB 8.4% INJ 50 MEQ/50 ML SYR IV ONE ×2 (15:29→15:39)
[2024-07-15] MEDS: AMIODARONE 360MG / 200ML D5W (CATH LAB USE ONLY) IV ONE (15:29)
[2024-07-15] MEDS: FUROSEMIDE 40 MG/4 ML VIAL IV ONE ×2 (15:29→15:30)
[2024-07-15] MEDS: EPTIFIBATIDE 2 MG/ML 10 ML VIAL (CATH LAB USE ONLY) IV ONE (15:30)
[2024-07-15] MEDS: TICAGRELOR 90 MG TAB ONE (15:30)
[2024-07-15] MEDS: RAPID SEQUENCE INDUCTION BAG ONE (15:31)
[2024-07-15] MEDS: 0.2 MICRON FILTER SET 1 EACH IV ONE (15:31)
[2024-07-15] MEDS: ATORVASTATIN 40 MG TAB PO SCH (15:38)
[2024-07-15] MEDS: VASOPRESSIN 20 UNITS in SODIUM CHLORIDE 0.9% 100 ML IV SCH (15:39)
[2024-07-15] MEDS: NOREPINEPHRINE/D5W 4 MG/250 ML PLCT IV SCH (15:39)
[2024-07-15] MEDS: AMIODARONE / D5W 360 MG/200 ML BAG IV ONE (15:53)
[2024-07-15] MEDS: EPINEPHrine/NSS 4 MG/254 ML BAG IV SCH (15:54)
[2024-07-15] MEDS: fentaNYL citrate 2,500 MCG/250 ML BAG IV ONE (15:55)
[2024-07-15] MEDS: fentaNYL citrate 2,500 MCG/250 ML BAG IV SCH (15:58)
[2024-07-15] MEDS ORDERED: GLUCOSE 40% GEL 15 GM TUBE PO PRN (16:00)
[2024-07-15] MEDS ORDERED: GLUCOSE 10 TAB/TUBE PO PRN (16:00)
[2024-07-15] MEDS ORDERED: DEXTROSE 50% 50 ML SYRINGE IV PRN (16:00)
[2024-07-15] MEDS ORDERED: GLUCAGON FOR INJ 1 MG VIAL SQ PRN (16:00)
[2024-07-15] MEDS ORDERED: CARBOHYDRATES FOR HYPOGLYCEMIA PO PRN (16:00)
--- NOTE | 2024-07-15 16:48 | Critical Care Consultation ---
Date of Consultation July 15, 2024 Assessment & Plan (1) Cardiogenic shock: (2) Required emergent intubation: (3) Cardiac arrest: (4) STEMI (ST elevation myocardial infarction): (5) PAUL (acute kidney injury): (6) HLD (hyperlipidemia): (7) Hypothyroidism: (8) Cirrhosis: (9) Lupus (systemic lupus erythematosus): Plan Reason Critically Ill: 64 YOF presented with STEMI and prior to cath suffered ventricular arrest requiring multiple shocks, epinephrine, emergent intubation, following ROSC she received 3 overlapping JORGE stents to LAD. To ICU on multiple vasopressors, intubated and on mechanical ventilation. Neuro - Concern for anoxic brain injury, sedation for mechanical ventilation CAM ICU: FIORELLA - Patient s/p prolonged resuscitation 10-15 minutes with return of ROSC - Will maintain normothermia - GCS 7 T - Minimize sedation as able- wake up in AM as hemodynamic status permits for better numerological evaluation - Too early at this time to prognosticate neurological status at this time- she is withdrawing, opens eyes to pain, and overbreathing ventilator - No seizure activity observed or suspected at this time - Once stabilized and depending on neurological exam- consider advanced imaging - Sedation - Goal RASS -2 - Fentanyl infusion and Versed bolus dosing at this time Cardiac - STEMI, Ventricular arrest, Cardiogenic Shock, HTN, HLD - S/p JORGE overlapping stents to LAD x3 - Shs has had ROSC following ventricular arrest secondary to ischemia - Continue epinephrine, Levophed, and Vasopressin infusions to maintain MAPS > 65: - Wean as applicable starting with Vasopressin, then Levophed - ScVO2 favorable at 62% - Lactate elevated- however difficult to ascertain meaning in patient that has cirrhosis and is on continuous epinephrine infusion - Post procedure ECHO obtained- awaiting formal read - Has received diuretics in labor contract analyst- required 500 ml bolus on arrival for hypotension and bedside POCUS with depressed IVC - Following stabilization GDMT per cardiology and hospitalist service - PA cath exchanged for TLC via venous sheath in place - DAPT per interventional- ASA and Brilinta Respiratory - Emergent intubation requiring mechanical ventilation, mild Pulmonary hypertension - ETT advanced 2 cm- no pneumothorax appreciated on post CPR CXR - currently on pressure support to facilitate synchrony and oxygenation -minimal PEEP and FIO2 being weaned - follow EtCO2 and MV- place on AC/VC overnight if required - COPD history- No recent PFTs in our system for review- Add on THERESA if needed currently no wheezing or elevation CO2 - Awake and breathing trials once hemodynamics have stablized GI - Cirrhosis with gastric varices and esophageal varices - Previously was on Lactulose 10GM daily- will check ammonia and LFTs in am in setting of shock - Will place on PPI IV BID with introduction of DAPT and high amount of vasopressor requirement at this time - OGT ok to use RENAL/LYTES - PAUL on CKD - Baseline appears to be 1.2-1.4- avoid further nephrotoxic medications as able - Mixed respiratory and metabolic acidosis- adjust ventilator settings and supportive care - hopeful to improve as she stabilizes - No acute needs - Meadows placed with adequate urine output following diuretics - hx of renal stones ENDO - DMII, Hypothyroidism - ICU hyperglycemic protocol - Check TSH in am HEME - Lupus anticoagulant disorder on chronic anticoagulation - Current INR 2.3 follow daily- she will be complex with bleeding risks now on DAPT as well ID - NO concern at this time for infective sources LINES/IV ACCESS - PIV, RIght groin sheath, TLC through right groin sheath, radial arterial line, ETT, OGT, Meadows Continue use of these lines DVT PROPHYLAXIS - SCDS, ASA, Brilinta DISPO: ICU until able to wean vasoactive mediations and liberate from mechanical ventilation I have personally spent 60 minutes of critical care time in the direct management of this patient. This is a life/limb threatening event. This includes time spent evaluating patient, direct bedside care, chart review, placing orders, interpretation of diagnostic studies, discussion with consultants, patient, and family members, as well as other required patient management activities. This time is exclusive of all separately billable procedures, and teaching time and separate from and in addition to any other critical care service time. Thank you for allowing us to participate in the care of this patient. Please refer to my attending physician's documentation for any further recommendations. History of Present Illness Reason for Consultation: cardiac arrest s/p PCI with stents, shock, intubation requiring mechanical ventilation Requesting Physician: Marly Rivero MD Attending Physician: Mat Sethi MD History of Present Illness All information in this HPI/note is obtained via chart review and discussion with interventionalist. 64 YOF with medical history of: CKD, Hypothyroidism, DMII, GERD, Cirrhosis, Lupus anticoagulation disorder on chronic warfarin. Patient came to the ER today with complains of chest pain by report was 6-04/08. EMS was called and patient was a pre-hospital heart alert, received asa and nitroglycerine en-rout e. She was noted to have ST elevations V2-V6 with underlying RBB. Patient was taken to the laborer tin can urgently, during prep patient entered into a ventricular arrhythmia and underwent ACLS resuscitation for 10-15 minutes, reported 5 defibrillations, CPR, multiple epinephrine pushes, amiodarone bolus and infusion, lidocaine and magnesium. She was intubated and stabilized, enough to proceed with coronary angiography. SHe received overlapping JORGE x3 to LAD. PA catheter was placed noting RAP-11, PA 37/24, PAOP 24- and reported CO of 9.5. She remained on epinephrine and norepinephrine infusions as well as amiodarone. On arrival to ICU patient remained hypotensive requiring increase in vasopressors adn fluid bolus to which she responded well too. She remains critically ill. Continue hemodynamic support and once stabilized, will require neurological evaluation. CODE: FULL Allergies Allergy/AdvReac Type Severity Reaction Status Date / Time adhesive Allergy Intermediate Rash Verified 06/12/24 13:56 enoxaparin [From Lovenox] Allergy Intermediate Rash Verified 06/12/24 13:56 NSAIDS (Non-Steroidal Allergy Unknown can't take Verified 06/12/24 13:56 Anti-Inflamma d/t taking a blood thinner nadolol AdvReac Severe Seizure Verified 06/12/24 13:56 amoxicillin [From Augmentin] AdvReac Mild yeast Verified 06/12/24 13:56 infection clavulanic acid AdvReac Mild yeast Verified 06/12/24 13:56 [From Augmentin] infection Home Medications Medication Instructions Recorded Confirmed Type baclofen 10 mg tablet 10 mg PO TID 06/04/22 06/22/24 History lactulose 10 gram/15 mL oral 10 g PO QDL PRN Constipation 09/24/22 06/22/24 History solution magnesium oxide 400 mg PO QAM 03/27/23 06/22/24 History pantoprazole 40 mg tablet,delayed 40 mg PO BID #180 tabs 09/29/23 06/22/24 Rx release hydrochlorothiazide 12.5 mg tablet 12.5 mg PO QAM #90 tabs 02/16/24 06/22/24 Rx loratadine 10 mg tablet 10 mg PO QAM #90 tabs 03/16/24 06/22/24 Rx oxybutynin chloride 5 mg tablet 5 mg PO QAM #90 tabs 03/16/24 06/22/24 Rx famotidine 40 mg tablet 40 mg PO DAILY PRN breakthrough 04/13/24 06/22/24 Rx acid reflux #30 tabs atorvastatin 10 mg tablet 10 mg PO QPM #90 tabs 05/09/24 06/22/24 Rx citalopram 10 mg tablet 10 mg PO QAM #90 tabs 05/09/24 06/22/24 Rx gabapentin 100 mg capsule 100 mg PO Q8H 90 days #270 caps 05/09/24 06/22/24 Rx levothyroxine 112 mcg tablet 112 mcg PO QAM #90 tabs 05/09/24 06/22/24 Rx lisinopril 2.5 mg tablet 2.5 mg PO QAM #100 tabs 05/09/24 06/22/24 Rx metformin 1,000 mg tablet 1,000 mg PO BID 100 days #200 tabs 05/09/24 06/22/24 Rx dulaglutide 0.75 mg/0.5 mL 0.75 mg (0.5 mL) subcut Q7D #2 mL 06/08/24 06/22/24 Rx subcutaneous pen injector (Trulicity) potassium chloride 20 mEq 20 meq PO QAM #90 tabs 06/08/24 06/22/24 Rx tablet,extended release(part/cryst) (Klor-Con M) warfarin 5 mg tablet See Rx Instructions PO UD #40 tabs 06/09/24 06/22/24 Rx warfarin 2.5 mg tablet See Rx Instructions PO UD #50 tabs 06/13/24 06/22/24 Rx Patient History Medical History CAD (coronary artery disease) Optimized medical management per records Mild nonocclusive coronary disease in the past reported (details unknown) per cardio records Degenerative disc disease Hx of encephalopathy hx of hepatic encephalopathy Hx of thrombosis "liver" - reason for warfarin - pt unsure of year GERD (gastroesophageal reflux disease) Hx of temporomandibular joint disorder (03/27/23) hx of pain when opening, treated at [facility] emergency room on 03/27/23. no problems since. 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 Surgical History S/P cystoscopy with ureteral stent placement 02-02-24 @ [facility] History of dilatation and curettage x2 S/P debridement necrotizing fascitis debridement (multiple) Hx of umbilical hernia repair x3 History of esophagogastroduodenoscopy (EGD) History of colonoscopy History of cataract surgery bilateral History of cervical spinal surgery with hardware (fusion unsure of levels) limited ROM side to side History of cardiac catheterization ~2015 in [facility] - no stents Family History Sister History of anesthesia reaction has difficulty waking up (never re-intubated) and PONV Denies family history of Ovarian cancer Crohn's disease Breast cancer Colorectal cancer Ulcerative colitis Social History Smoking Status: Current every day smoker Tobacco Type: Cigarettes packs per day: 0.5; Cigarettes Per Day: 10; Second Hand Exposure: No; Do You Dip or Chew Tobacco: No; Tobacco Cessation Education Requested by Patient: No Hx Alcohol Use: No Hx Substance Use: No Preferred Language: Filipino Communication Ability: Unable Overcaster Required: Yes Beliefs That Will Affect Care: None marital status: Current Living Situation: Spouse current occupational status: retired Other Information That Helps Us Care for You: No Feels Safe at Home: Yes Safety Concerns: Feels Safe At This Time Childhood Exposure to Second-Hand Smoke: Yes caffeine: Yes Dental Care, Regularly: No Assistive Devices: Walker Review of Systems Review of Systems: unalble to perform secondary to intubation and sedation Physical Exam Physical Exam: PHYSICAL EXAM: General: intubated sedated Head: Normocephalic, atraumatic Neuro: Intubated and sedated, rigors on arrival, did eventually open eyes, lightly moves extremities and withdrawal to pain, overbreathing ventilator. Chest: equal rise and fall of the chest, no accessory muscle use, no heaves or thirdly, mild crackles Cardiac: Regular rate and rhythm, telemetry reviewed- NSR occasional PVS, skin cool and dry cap refill ~5 seconds, peripheral pusles +2 no JVD, no murmur, GI: NABS x 4 quadrants, soft, : Meadows to gravity Results & Data Results & Data Vital Signs (Past 12 Hours) Vital Signs Pulse Resp BP Pulse Ox O2 Del Method FiO2 07/15/24 15:23 114 H 14 60 07/15/24 13:28 109 H 24 98 100 07/15/24 12:37 Room Air 07/15/24 12:26 91 H 07/15/24 12:21 94 H 20 129/87 98 07/15/24 12:10 Room Air 07/15/24 12:10 95 H 22 131/87 100 Room Air Laboratory Results Abnormal lab results 07/15/24 07/15/24 07/15/24 Range/Units 12:20 12:21 13:17 POC Hgb (12.0-16.0) g/dl POC Hct (37-47) % RDW Std Deviation 47.8 H (36.4-46.3) fL RDW Coeff of Angelica 14.6 H (11.5-14.5) % PT 22.8 H (9.0-12.0) Seconds INR 2.3 H (0.9-1.1) Activ Coag Time Kaolin 299 H (94-140) SECONDS POC pH (7.35-7.45) POC pCO2 (35-46) mmHg POC pO2 (80-95) mmHg POC HCO3 (19-24) everardo/L POC Base Excess (-9-1.8) everardo/L POC ABG O2 Sat (90-95) % POC Potassium (3.3-5.0) mmol/L POC Total CO2 21 L (24-31) mmol/L Anion Gap 14 H (3-11) POC BUN 27 H (7-18) mg/dl BUN 27 H (6-23) mg/dl Creatinine 1.47 H (0.6-1.2) mg/dl POC Creatinine 1.6 H (0.6-1.3) mg/dl Glucose 200 H (70-99(Fasting)) mg/dl POC Glucose (other) 197 H (70-99) mg/dl Lactate (0.4-2.0) mmol/L POC Ioniz Calcium Minnie 1.09 L (1.12-1.32) mmol/l Troponin I High Sens 1165.6 H* (0-14) pg/ml 07/15/24 07/15/24 07/15/24 Range/Units 13:18 14:01 16:12 POC Hgb 11.6 L 11.6 L (12.0-16.0) g/dl POC Hct 34 L 34 L (37-47) % RDW Std Deviation (36.4-46.3) fL RDW Coeff of Angelica (11.5-14.5) % PT (9.0-12.0) Seconds INR (0.9-1.1) Activ Coag Time Kaolin (94-140) SECONDS POC pH 7.16 L* 7.22 L (7.35-7.45) POC pCO2 51 H 53 H (35-46) mmHg POC pO2 272 H 54 L (80-95) mmHg POC HCO3 18 L (19-24) everardo/L POC Base Excess -11.0 L (-9-1.8) everardo/L POC ABG O2 Sat 100.0 H 81.0 L (90-95) % POC Potassium 3.2 L (3.3-5.0) mmol/L POC Total CO2 19 L 23 L (24-31) mmol/L Anion Gap (3-11) POC BUN (7-18) mg/dl BUN (6-23) mg/dl Creatinine (0.6-1.2) mg/dl POC Creatinine (0.6-1.3) mg/dl Glucose (70-99(Fasting)) mg/dl POC Glucose (other) (70-99) mg/dl Lactate 12.0 H* (0.4-2.0) mmol/L POC Ioniz Calcium Minnie (1.12-1.32) mmol/l Troponin I High Sens 154118.4 H* D (0-14) pg/ml Diagnostic Findings Chest X-Ray 07/15/24 14:46 EXAM: X-ray chest one-view portable CLINICAL HISTORY: Evaluate lines post cath PRIORS: None TECHNIQUE: Frontal view chest FINDINGS: The endotracheal tube terminates approximately 6.2 cm superior to the victoria. A nasogastric tube is present within the feqhv-ig-alac with distal tip not at the edge of the umgan-ki-gvif. The chest is well-expanded. No airspace consolidation, effusion or congestive changes. Heart size is top normal. No pneumothorax. Osseous structures demonstrate no acute abnormality. IMPRESSION: Endotracheal tube terminating 6.2 cm superior to the victoria. No pneumothorax. Electronically signed by Luann Mane 07-15-2024 3:13 PM Medications Administered Atorvastatin Calcium (Atorvastatin 40 Mg Tab) 80 mg PO QAM [facility] Stop: 08/14/24 14:29 Last Admin: 07/15/24 15:38 Dose: 80 mg Documented By: SHEN Amiodarone HCl/Dextrose (Nexterone / D5w) 360 mg in 200 mls @ 33.333 mls/hr IV ONE ONE; Protocol Stop: 07/15/24 20:33 Last Admin: 07/15/24 15:53 Dose: 1 mg/min, 33.3 mls/hr Documented By: SHEN Co-signed By: TIFFANIE Epinephrine HCl () 4 mg in 254 mls @ 7.826 mls/hr IV .Q24H ANN; Protocol Stop: 08/14/24 14:44 Last Titration: 07/15/24 17:24 Dose: 0.22 mcg/kg/min, 86.1 mls/hr Documented By: Titration: 07/15/24 16:54 Dose: 0.21 mcg/kg/min, 82.2 mls/hr Documented By: Admin: 07/15/24 15:54 Dose: 0.1 mcg/kg/min, 39.1 mls/hr Documented By: SHEN Co-signed By: TIFFANIE Norepinephrine Bitartrate (Levophed/D5w) 4 mg in 250 mls @ 96.281 mls/hr IV .Q2H36M ANN; Protocol Stop: 08/14/24 14:44 Last Titration: 07/15/24 16:55 Dose: 0.25 mcg/kg/min, 96.3 mls/hr Documented By: Admin: 07/15/24 15:39 Dose: 0.2 mcg/kg/min, 77 mls/hr Documented By: SHEN Co-signed By: TIFFANIE Vasopressin 20 units/ Sodium (Chloride) 101 mls @ 0 mls/hr IV .Q0M ANN Stop: 08/14/24 14:59 Last Infusion: 07/15/24 16:55 Dose: 0 unit/min, 0 mls/hr Documented By: SHEN Co-signed By: GPF Admin: 07/15/24 15:39 Dose: 0.04 unit/min, 12.1 mls/hr Documented By: SHEN Co-signed By: TIFFANIE Fentanyl Citrate (Fentanyl Citrate) 2,500 mcg in 250 mls @ 2.5 mls/hr IV .Q96H ANN; Protocol Stop: 07/29/24 15:24 Last Admin: 07/15/24 15:58 Dose: 75 mcg/hr, 7.5 mls/hr Documented By: SHEN Co-signed By: TIFFANIE Discontinued Medications Amiodarone HCl/Dextrose (Amiodarone 150mg / 100ml D5w (Superior Court Clerk Use Only)) Confirm Administered Dose 150 mg IV .STK-MED ONE Stop: 07/15/24 12:52 Last Admin: 07/15/24 15:28 Dose: Not Given Documented By: KYA Amiodarone HCl/Dextrose (Amiodarone 360mg / 200ml D5w (Superior Court Clerk Use Only)) Confirm Administered Dose 360 mg IV .STK-MED ONE Stop: 07/15/24 13:07 Last Admin: 07/15/24 15:29 Dose: 360 mg Documented By: KYA Amiodarone HCl (Amiodarone Hcl Inj 50 Mg/Ml 3 Ml Vial (Superior Court Clerk Use Only)) Confirm Administered Dose 150 mg IV .STK-MED ONE Stop: 07/15/24 12:51 Last Admin: 07/15/24 15:28 Dose: 150 mg Documented By: KYA Eptifibatide (Eptifibatide 2 Mg/Ml 10 Ml Vial (Superior Court Clerk Use Only)) Confirm Administered Dose 40 mg IV .STK-MED ONE Stop: 07/15/24 13:46 Last Admin: 07/15/24 15:30 Dose: 9 ml Documented By: KYA Fentanyl Citrate (Fentanyl Citrate Pf 100 Mcg/2 Ml Vial) Confirm Administered Dose 100 mcg .ROUTE .STK-MED ONE Stop: 07/15/24 12:12 Last Admin: 07/15/24 12:34 Dose: Not Given Documented By: LAURI Fentanyl Citrate (Fentanyl Citrate Pf 100 Mcg/2 Ml Vial) 25 mcg IV NOW STA Stop: 07/15/24 12:14 Last Admin: 07/15/24 12:19 Dose: 25 mcg Documented By: LAURI Fentanyl Citrate (Fentanyl Citrate Pf 100 Mcg/2 Ml Vial) Confirm Administered Dose 100 mcg .ROUTE .STK-MED ONE Stop: 07/15/24 12:27 Last Admin: 07/15/24 15:26 Dose: 125 mcg Documented By: KYA Fentanyl Citrate (Fentanyl Citrate 2,500 Mcg/250 Ml Bag) Confirm Administered Dose 2,500 mcg IV .STK-MED ONE Stop: 07/15/24 15:04 Last Admin: 07/15/24 15:55 Dose: Not Given Documented By: SHEN Furosemide (Furosemide 40 Mg/4 Ml Vial) Confirm Administered Dose 40 mg IV .STK- MED ONE Stop: 07/15/24 13:02 Last Admin: 07/15/24 15:29 Dose: 40 mg Documented By: KYA Furosemide (Furosemide 40 Mg/4 Ml Vial) Confirm Administered Dose 40 mg IV .STK- MED ONE Stop: 07/15/24 13:51 Last Admin: 07/15/24 15:30 Dose: 40 mg Documented By: KYA Heparin Sodium (Porcine) (Heparin (Porcine) 1000 Unit/Ml 10 Ml (Superior Court Clerk Use Only)) Confirm Administered Dose 10,000 units .ROUTE .STK-MED ONE Stop: 07/15/24 12:26 Last Admin: 07/15/24 15:25 Dose: 8,000 units Documented By: KYA Heparin Sodium/Sodium Chloride (Heparin In Nss Infusion 1000 Unit/500 Ml (2 U/Ml) Bag) Confirm Administered Dose 3,000 units IV .STK-MED ONE Stop: 07/15/24 12:27 Last Admin: 07/15/24 15:27 Dose: 3,000 units Documented By: KYA N/A (0.2 Micron Filter Set 17" W/Clave,Non-Dehp) 0 mls @ 1 mls/hr IV ONE ONE Stop: 07/15/24 14:35 Last Admin: 07/15/24 15:31 Dose: 1 mls/hr Documented By: KYA Iodixanol (Iodixanol (Visipaque) 320 Mg/Ml 100ml) Confirm Administered Dose 1 ml IV .STK-MED ONE Stop: 07/15/24 15:32 Last Admin: 07/15/24 16:53 Dose: Not Given Documented By: SHEN Ioversol (Optiray 350) Confirm Administered Dose 1 ml .ROUTE .STK-MED ONE Stop: 07/15/24 12:27 Last Admin: 07/15/24 15:27 Dose: 150 ml Documented By: KYA Midazolam HCl (Midazolam Hcl 1 Mg/Ml 2ml Vial) Confirm Administered Dose 2 mg .ROUTE .STK-MED ONE Stop: 07/15/24 12:26 Last Admin: 07/15/24 15:26 Dose: 3 mg Documented By: KYA Midazolam HCl (Midazolam Hcl 1 Mg/Ml 2ml Vial) Confirm Administered Dose 2 mg .ROUTE .STK-MED ONE Stop: 07/15/24 13:44 Last Admin: 07/15/24 15:29 Dose: Not Given Documented By: KYA Midazolam HCl (Midazolam Hcl 1 Mg/Ml 2ml Vial) Confirm Administered Dose 2 mg .ROUTE .STK-MED ONE Stop: 07/15/24 15:05 Last Admin: 07/15/24 15:39 Dose: 2 mg Documented By: SHEN Miscellaneous (Rapid Sequence Induction Bag) Confirm Administered Dose 1 each N/A .STK-MED ONE Stop: 07/15/24 13:04 Last Admin: 07/15/24 15:31 Dose: 1 each Documented By: KYA Nicardipine HCl (Nicardipine 2,000 Mcg/20 Ml Syr) Confirm Administered Dose 2,000 mcg .ROUTE .STK-MED ONE Stop: 07/15/24 12:26 Last Admin: 07/15/24 15:26 Dose: 2,000 mcg Documented By: JUSTUS Nicardipine HCl (Nicardipine Hcl Inj 2.5 Mg/Ml 10 Ml Amp) Confirm Administered Dose 25 mg .ROUTE .STK-MED ONE Stop: 07/15/24 12:27 Last Admin: 07/15/24 15:27 Dose: 25 mg Documented By: CRJ Nitroglycerin/Dextrose (Nitroglycerin/D5w 100mcg/Ml 20ml Syr) Confirm Administered Dose 2,000 mcg .ROUTE .STK-MED ONE Stop: 07/15/24 12:27 Last Admin: 07/15/24 15:28 Dose: 2,000 mcg Documented By: CRJ Norepinephrine Bitartrate (Norepinephrine/D5w 4 Mg/250 Ml) Confirm Administered Dose 4 mg IV .STK-MED ONE Stop: 07/15/24 13:06 Last Admin: 07/15/24 15:29 Dose: 4 mg Documented By: BPY Sodium Bicarbonate (Sodium Bicarb 8.4% Inj 50 Meq/50 Ml Syr) Confirm Administered Dose 50 meq IV .STK-MED ONE Stop: 07/15/24 13:22 Last Admin: 07/15/24 15:29 Dose: 50 meq Documented By: BPY Sodium Bicarbonate (Sodium Bicarb 8.4% Inj 50 Meq/50 Ml Syr) Confirm Administered Dose 50 meq IV .STK-MED ONE Stop: 07/15/24 14:55 Last Admin: 07/15/24 15:39 Dose: Not Given Documented By: KJL Ticagrelor (Ticagrelor 90 Mg Tab) Confirm Administered Dose 180 mg .ROUTE .STK- MED ONE Stop: 07/15/24 13:47 Last Admin: 07/15/24 15:30 Dose: 180 mg Documented By: BPY ECG Additional Comments: Sinus tachycardia Low voltage QRS Left anterior fascicular block Septal infarctLateral infarct, age undetermined Abnormal ECG When compared with ECG 11:58, Significant changes have occurred Coding Level of Care Code 52196 CRITICAL CARE 1ST 30-74M Diagnoses Cardiogenic shock R57.0 Required emergent intubation Z98.890 Cardiac arrest I46.9 STEMI (ST elevation myocardial infarction) I21.3 PAUL (acute kidney injury) N17.9 HLD (hyperlipidemia) E78.5 Hypothyroidism E03.9 Cirrhosis K74.60 Lupus (systemic lupus erythematosus) M32.9
[2024-07-15] MEDS: IODIXANOL (VISIPAQUE) 320 MG/ML 100ML IV ONE (16:53)
[2024-07-15] MEDS: ICU Protocol for HYPERglycemia SCH (17:53)
--- NOTE | 2024-07-15 18:05 | Procedure Note ---
Procedure Note Date of Service July 15, 2024 Procedure: Exchange of CVL through existing venous introducer Proceduralist: Torin CARDOZA ([facility]) Attending: Carlos Mcdermott Indication: Central Drug Administration, Poor Venous Access, Multiple Lab Draws Necessary, etc. Emergent Consent was implied as patient was requrining increasing vasopressor needs and more access. Access was already in place. A time-out was completed verifying correct patient, procedure, site. Initially Patients bilateral neck was prepped and draped in sterile fashion, however no adequate target was visualized. Imaging films from earlier did show PA cath in place however was in the IVC. Due to this and discussion with DR. Mora at bedside, the PA cath was removed via the introducer with balloon deflated under sterile environment. The cap of the introducer was cleansed with Chloraprep, once allowed to dry and TLC ports flushed, the 7FR 20 CM catheter was easily inserted into the femoral vein via the right femoral introducer/sheath. All ports flushed well and had good blood return. Vasopressors were then exchanged from side port of sheath to CVL. The line was secured in place with 1 suture and covered again with sterile gauze and Tegaderm. No immediate complications were noted. Images obtained are saved for permanent record. [facility] [place] (Charges) Tubes, Drains, and Vasc Access Procedure 1: Tubes, Drains, and Vasc Access: [id number] Insertion Of Non-tunneled Catheter Age 3 Yrs> Coding CPT Codes Tubes, Drains, and Vasc Access - Tubes, Drains, and Vasc Access: [id number] Insertion Of Non-tunneled Catheter Age 3 Yrs> ([id number]) Additional Codes Date of Service ([facility]SURGERY)
[2024-07-15] MEDS ORDERED: SEVERE STRESS LEVEL ONE (18:19)
[2024-07-15] MEDS ORDERED: INSULIN PROTOCOL GOAL RANGE ONE (18:19)
[2024-07-15] MEDS: INSULIN REGULAR 250 UNITS in SODIUM CHLORIDE 0.9% 247.5 ML IV SCH (18:48)
[2024-07-15] MEDS: NovoLIN-R BOLUS FROM BAG IV ONE (18:49)
[2024-07-15] MEDS: AMIODARONE / D5W 360 MG/200 ML BAG IV SCH (19:10)
[2024-07-15] MEDS ORDERED: Nursing to Pharmacy Communication SCH (19:15)
[2024-07-15] MEDS: MAX IV SCH (19:45)
[2024-07-15] MEDS: [UNRECOGNIZED DRUG - OTHER] IV SCH (19:45)
[2024-07-15] MEDS: MAX Conc; 16mg in 250mL IV SCH (19:59)
[2024-07-15] MEDS: ACETAMINOPHEN 1,000 MG/100 ML VIAL IV PRN (20:30)
[2024-07-15] MEDS: SODIUM CHLORIDE 0.9% 250 ML IV ONE ×2 (20:31→21:11)
[2024-07-15] MEDS ORDERED: PNEUMOCOCCAL VACCINE (PCV20) 20-VAL CONJ-DIP CRM/PF 0.5 ML SYR IM ONE (21:00)
[2024-07-15] MEDS ORDERED: PANTOprazole 40 MG/10 ML SYR IV SCH (21:00)
[2024-07-15] MEDS: INSULIN ASPART PER UNIT CHARGE SC SCH ×2 (21:10→22:44)
[2024-07-15] MEDS: PANTOprazole 40 MG/10 ML SYR IV SCH (21:13)
[2024-07-15] MEDS: MIDAZOLAM HCL 125 MG/250 ML BAG IV SCH (21:45)
[2024-07-15 21:55] LABS: iSTAT Art Bld Gas pCO2 Correct 43 mmHg (35-46); iSTAT Art Bld Gas pH Corrected 7.171 (7.35-7.45); iSTAT Arterial Blood Gas HCO3 16 meg/L (19-24); iSTAT Arterial Blood Gas pCO2 41 mmHg (35-46); iSTAT Arterial Blood Gas pH 7.19 (7.35-7.45); iSTAT Arterial Blood Gas pO2 144 mmHg (80-95); iSTAT Arterial Blood Gas pO2 C 151; iSTAT Carbon Dioxide 17 mmol/L (24-31); iSTAT FiO2 50 %; iSTAT Hematocrit 32 % (37-47); iSTAT Hemoglobin 10.9 g/dl (12.0-16.0); iSTAT Potassium 2.9 mmol/L (3.3-5.0); iSTAT Sample Type Arterial; iSTAT Site Art Line; iSTAT Sodium 143 mmol/L (135-144); iSTAT SpO2 100
[2024-07-15] MEDS: SODIUM BICARBONATE 8.4% 150 MEQ in WATER, STERILE 1,000 ML IV SCH (22:12)
[2024-07-15] MEDS: SODIUM BICARB 8.4% INJ 50 MEQ/50 ML SYR IV STA (22:12)
[2024-07-15 22:28] LABS: Appearance Urine Cloudy (Clear); Bacteria Urine Automated None Seen (None Seen); Bilirubin Urine Negative (Negative); Blood Urine 2+ (Negative); Color Urine Yellow; Glucose Urine UA Negative (Negative); Ketones Urine Negative (Negative); Leukocyte Esterase Urine Negative (Negative); Nitrite Urine Negative (Negative); Protein Urine 1+ (Negative); Specific Gravity Urine > 1.045 (1.000-1.030); Urobilinogen Urine Negative (Negative); WBC Urine Automated 0-5 /hpf (0-5)
--- NOTE | 2024-07-15 23:27 | XCELERA ---
[id number]
[2024-07-15 23:29] LABS: iSTAT Art Bld Gas pCO2 Correct 44 mmHg (35-46); iSTAT Art Bld Gas pH Corrected 7.238 (7.35-7.45); iSTAT Arterial Blood Gas HCO3 18 meg/L (19-24); iSTAT Arterial Blood Gas pCO2 41 mmHg (35-46); iSTAT Arterial Blood Gas pH 7.25 (7.35-7.45); iSTAT Arterial Blood Gas pO2 114 mmHg (80-95); iSTAT Arterial Blood Gas pO2 C 122; iSTAT Carbon Dioxide 20 mmol/L (24-31); iSTAT Hematocrit 32 % (37-47); iSTAT Hemoglobin 10.9 g/dl (12.0-16.0); iSTAT Potassium 2.9 mmol/L (3.3-5.0); iSTAT Sample Type Arterial; iSTAT Site Art Line; iSTAT Sodium 143 mmol/L (135-144); iSTAT SpO2 100
[2024-07-15] MEDS: CEFEPIME 2000MG 2,000 MG/20 ML SYR IV ONE (23:50)
[2024-07-16] MEDS: SODIUM BICARB 8.4% INJ 50 MEQ/50 ML SYR IV STA (02:42)
[2024-07-16] MEDS ORDERED: STAT IV Infusion **Titration per Protocol STA (02:42)
--- NOTE | 2024-07-16 02:45 | Communication Note ---
Date of Service: July 16, 2024 0230- Patient with rapid decline requiring multiple increases in her epinephrine, Levophed, and vasopressin was restarted secondary to refractory hypotension. ABG was performed with remaining Metabolic Acidosis with PH 7.19 HCO3 17, CO2 41 and PaO2 > 100. UO for this hour has also decreased. Dr. Mora was notified of change in clinical status and decision was made to call heart alert with attempt of possibly adding mechanical support. A trial of Dobutamine was attempted, she remained hypotensive with BP in the 70s and MAPS 55, she was given an amp of HCO3 and bicarb drip was increased to 130ml/hour as well as 1GM CACL with improvement in blood pressure momentarily. She was taken to cardiac catheterization technician for evaluation. was notified by myself as well as Dr. Mora. He will be on his way to the hospital to discuss further goals of care. After evaluation of hemodynamics in the cardiac catheterization technician, it was brought to that recommendations of care at this time would be for mechanical support and transfer to tertiary care center. asked what her prognosis would be and was worried about her quality of life following an extended clinical course, as she is with multiple chronic co- morbidities at this time. Risks/benefits and mortality from just her cardiac status was provided by Dr. Mora to the . He did reflect on her father having a "heart pump" that kept him alive and did not feel that she would want to live that way. He was also concerned about unknowing her neurological status at this time and was sure she would not want to live in a comatose state or worse. He understood that without further intervention that she most likely would . He did ask what remaining care would look like, we discussed continuing current therapy and see how she did, but he did not want her to be in pain or continue to suffer. We discussed palliative extubation with transition to comfort care. He decided to keep the patient here and progress to comfort care with palliative extubation when family arrives. He will call his kids now to come to the hospital. In the interim if she were to worsen we will try to support until family arrives, if she would arrest in that time, he did not want to pursue further CPR or ACLS care to possibly prolong her life. Her Code status will be changed to DNR/DNI. Once family arrives, we will proceed with shutting off sedation with an attempt that patient may be able to communicate with family, followed by extubation and turning off vasoactive support. We will provide pain and air hunger relief with morphine, anxiety or seizures with Ativan, will attempt to manage oral secretions with atropine or glycopyrrolate, and provide antiemetics. Primary service has also been updated. 0600- and son at bedside with other family, awaiting daughter. Will transition care to [facility]. Torin CARDOZA ([facility]-)
[2024-07-16] MEDS: DOBUTamine / D5W 1,000 MG/250 ML BAG IV SCH (02:55)
[2024-07-16 03:05] LABS: iSTAT Art Bld Gas pCO2 Correct 45 mmHg (35-46); iSTAT Art Bld Gas pH Corrected 7.181 (7.35-7.45); iSTAT Arterial Blood Gas HCO3 17 meg/L (19-24); iSTAT Arterial Blood Gas pCO2 46 mmHg (35-46); iSTAT Arterial Blood Gas pH 7.18 (7.35-7.45); iSTAT Arterial Blood Gas pO2 110 mmHg (80-95); iSTAT Arterial Blood Gas pO2 C 109; iSTAT Carbon Dioxide 18 mmol/L (24-31); iSTAT FiO2 40 %; iSTAT Hematocrit 30 % (37-47); iSTAT Hemoglobin 10.2 g/dl (12.0-16.0); iSTAT Potassium 3.3 mmol/L (3.3-5.0); iSTAT Sample Type Arterial; iSTAT Site Art Line; iSTAT Sodium 142 mmol/L (135-144); iSTAT SpO2 100
[2024-07-16 03:09] LABS: Basophils # (auto) 0.03 K/uL (0.00-0.20); Basophils % (auto) 0.2 %; Eosinophils # (auto) 0.02 K/uL (0.00-0.50); Eosinophils % (auto) 0.1 %; Hematocrit (blood only) 29.8 % (37.0-47.0); Hemoglobin 9.4 g/dl (12.0-16.0); Immature Granulocytes # (auto) 0.09 K/uL (0.01-0.20); Immature Granulocytes % (auto) 0.5 %; Lymphocytes # (auto) 1.47 K/uL (1.20-3.40); Lymphocytes % (auto) 8.4 %; Mean Corpuscular Hemoglobin 29.6 pg (25.0-34.0); Mean Corpuscular Hgb Conc 31.5 g/dL (32.0-36.0); Mean Corpuscular Volume 93.7 fL (80.0-100.0); Mean Platelet Volume 10.5 fL (9.4-12.4); Monocytes # (auto) 1.06 K/uL (0.11-0.59); Monocytes % (auto) 6.1 %; Neutrophils # (auto) 14.83 K/uL (1.40-6.50); Neutrophils % (auto) 84.7 %; Platelet Count 191 K/uL (130-400); RDW Coefficient of Variation 14.7 % (11.5-14.5); RDW Standard Deviation 50.7 fL (36.4-46.3); Red Blood Count 3.18 M/uL (4.20-5.40)
[2024-07-16] MEDS: CALCIUM CHLORIDE 10% 1,000 MG in DEXTROSE 5% 50 ML IV STA (03:10)
[2024-07-16 03:27] LABS: Anion Gap 15 (3-11); BUN Creatinine Ratio 17.4 (10-20); Blood Urea Nitrogen 30 mg/dl (6-23); Calcium 7.1 mg/dl (8.6-10.3); Carbon Dioxide 18 mmol/L (21-32); Chloride 106 mmol/L (98-107); Creatinine Clr Calc Pharmacy 39.7 ml/min; Glucose 176 mg/dl (70-99(Fasting)); Potassium 3.3 mmol/L (3.5-5.1); Sodium 139 mmol/L (136-145)
[2024-07-16] MEDS: CALCIUM CHLORIDE 10% 10 ML SYR IV ONE (03:42)
[2024-07-16] MEDS: CALCIUM GLUCONATE 1000 MG/60 ML NSS IV ONE (03:42)
--- NOTE | 2024-07-16 04:41 | Cardiac Catheterization ---
[facility] Data: Communications Superintendent Cardiac Status Clinical evaluation leading to the procedure CAD Presenation: STEMI Diagnostic Physicians Name: Bradford Mora MD Closure Device Recommendations: PCI without planned CABG Cardiac Cath Procedure Full Procedure Date July 16, 2024 Pre-Procedure Diagnosis Pre-Procedure Diagnosis: Cardiothoracic Symptom (Cardiogenic shock) AUC Score AUC Score: 7 Post-Procedure Diagnosis Post-Procedure Diagnosis: Severe CAD and Elevated Intracardiac Pressures Procedure(s) Performed Procedure(s) Performed: Coronary Angiography, Left Heart Cath, Right Heart Cath and Ultrasound Guided Vascular Access Compensation And Benefits Administrator Bradford Mora MD Compounder Flavorings(s) Mati Estimated Blood Loss Estimated Blood Loss: 5 Medication(s) Medication(s): Lidocaine 1% Summary of Findings Indication: Hospital day 2 post acute AR with cardiogenic shock treated with pr imary PCI. Brought back to Communications Superintendent in the setting of refractory shock and escalating pressor requirement. Access: 5 Fr left KILN CHARGER, 7 Fr left KILN CHARGER Catheters: JL 4, JR4, [place] Findings: LM -normal caliber, 20% distal stenosis LAD -medium caliber, proximal to mid LAD stents widely patent with PATRICA I flow in distal stent and no flow in apical LAD as wraps around apex. PATRICA-3 flow in small D1 50% proximal and small to medium D2 with 70% ostial stenosis. Circumflex -large caliber, 20 to 30% proximal, mid segment calcified with 20-30% disease. Medium OM 2, left PLB tortuous without significant disease. RCA -dominant, medium caliber, diffuse mid segment disease up to 50%. RPDA, PLB without significant disease. RA 16 RV 50/14 PA 39/29 (34) LV 32 PaSat 36% AoSat 95% Shi 3.7/1.7 Thermo CO/CI 5.3/2.5 Arterial Closure: TR band Summary: 1. Patent LAD stents with PATRICA I distal flow and no flow in apical LAD as wraps around apex 2. Unchanged mild to moderate RCA, circumflex disease 3. Elevated left and right-sided filling pressures 4. 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 Patient's did not feel patient would want more aggressive care considering her health before acute event and potential for long-term neurologic, cardiac related deficits. Decision made to continue with current supportive care but no further escalation and patient made DNR. Hemodynamics Rest Ao:: 58 Final Ao: - LV: /32 Recommendations Recommendations: PCI without planned CABG Specimens Specimens: None Radiation Exposure (mGy) 1420 Contrast (mls) 50 Anesthesia Moderate 2084-6868 Procedural Complication(s) None Disposition ICU I attest to the content of the Intraoperative Record and any orders documented therein. Any exceptions are noted below. [facility] Card Cath Procedure Codes Cardiac Catheterization Procedure 1: Cardiovascular Cath Procedures: 31207 Coronaries & LHC (+/-LV) & RHC Therapeutic Services & Ancillary Procedure 1: Cardiovascular Tx and Anc Procedures: 36515 Ultrasonic Guidance Vascular Access Procedure 2: Cardiovascular Tx and Anc Procedures: 06631 Ultrasonic Guidance Vascular Access PG Care Time/CCT Total # of Minutes Spent Total Time Spent with Patient: Total time spent is greater than 50% in coordination of care (as documented) at patient's floor/unit and/or counseling patient:
--- NOTE | 2024-07-16 05:22 | Cardiology Progress Note ---
Date of Service July 16, 2024 Assessment & Plan (1) STEMI (ST elevation myocardial infarction): Plan: 2. Cardiogenic shock 3. In hospital VT/VF arrest 4. Suspected anoxic brain injury 5. Anemia 6. Acute on chronic renal failure Patient with refractory shock with persistent hypoperfusion on 3 vasopressors. Did not tolerate additional inotropes and discussion had with ICU team regarding need for mechanical circulatory support. Repeat cardiac catheterization showed patent stents but no flow in very distal LAD is wraparound apex. Repeat right heart catheterization confirmed cardiogenic shock (PA sat 36%) with predominantly left-sided failure. Following RHC/initial angiography discussion had with Torin Batista from ICU and patient's regarding how to proceed. We discussed that in current state without additional hemodynamic support patient unlikely to survive. Even if with successful MCS placement/transfer to tertiary center prognosis still poor from a cardiac standpoint (mortality >50%) and overall neurologic status still unknown. Patient's did not feel patient would want more aggressive care considering her health before acute event and potential for long-term neurologic, cardiac related deficits. Decision made to continue with current supportive care but no further escalation and patient made DNR. Admission and Anticipated Discharge Date Admission Date: July 15, 2024 Subjective Contacted tonight by ICU team due to persistent cardiogenic shock with increasing pressor requirements. At time of arrival requiring high-dose nor epi, epinephrine and vasopressin to maintain maps in 60s. Urine output dropped from 30 cc/h down to 10. Lactate initially 12 remained 10.7. Hemoglobin down from 12.4-9.4 and creatinine up from 1.47-1.72. Bedside echo showed unchanged severe LV dysfunction, normal RV function, trace pericardial effusion Review of Systems Review of Systems: Unobtainable due to cognitive status and Unobtainable due to endotracheal tube Physical Exam Physical Exam: General: Intubated, off sedation, no response to pain Eyes: Sclerae anicteric, pupils equal, sluggish HENT: ETT in place Lungs: Clear anteriorly Cardiac: Tachycardic, regular Vascular: No hematoma and right GRAIN CLEANER access site Abdomen: Soft Extremities: Cool, no edema Neuro: Unresponsive Results & Data Vital Signs (Past 12 Hours) Vital Signs Temp Pulse Resp BP Pulse Ox O2 Del Method FiO2 07/16/24 03:03 97.7 F 99 H 11 L 99 07/16/24 03:00 82/55 L 07/16/24 02:42 100 H 10 L 100 07/16/24 02:24 95 H 10 L 100 07/16/24 02:18 96 H 20 100 40 07/16/24 02:16 81/60 L 07/16/24 02:16 81/60 L 07/16/24 02:16 81/60 L 07/16/24 02:15 100 H 13 100 07/16/24 02:00 98.2 F 99/65 L 07/16/24 02:00 93 H 15 100 07/16/24 01:54 94 H 9 L 100 07/16/24 01:36 95 H 6 L 100 07/16/24 01:21 87 7 L 100 07/16/24 01:18 99.5 F 95 H 13 100 07/16/24 01:03 95 H 0 L 100 07/16/24 01:00 97/66 L 07/16/24 01:00 97/66 L 07/16/24 00:45 95 H 11 L 100 07/16/24 00:18 99 H 9 L 100 07/16/24 00:03 99 H 10 L 100 07/16/24 00:00 114/79 07/16/24 00:00 114/79 07/16/24 00:00 100.8 F H 114/79 07/16/24 00:00 40 07/16/24 00:00 100 H 07/15/24 23:57 101 H 11 L 100 07/15/24 23:45 103 H 19 100 07/15/24 23:06 107 H 12 100 07/15/24 23:00 108/72 07/15/24 23:00 100.8 F H 108/72 07/15/24 23:00 108/72 07/15/24 22:33 108 H 13 100 07/15/24 22:33 110 H 15 100 40 07/15/24 22:21 100.8 F H 113 H 13 100 07/15/24 22:12 100.8 F H 110 H 8 L 100 07/15/24 22:00 99/71 L 07/15/24 21:56 110 H 11 L 100 40 07/15/24 21:42 100.8 F H 110 H 7 L 100 07/15/24 21:21 100.6 F H 112 H 11 L 100 07/15/24 21:15 114/66 07/15/24 21:12 100.6 F H 116 H 13 100 07/15/24 21:06 100.6 F H 102 H 14 100 07/15/24 21:00 99/71 L 07/15/24 21:00 99/71 L 07/15/24 21:00 99/71 L 07/15/24 21:00 99/71 L 07/15/24 20:57 100.4 F H 113 H 10 L 100 07/15/24 20:54 100.4 F H 114 H 11 L 100 07/15/24 20:45 109/67 07/15/24 20:31 86/55 L 07/15/24 20:03 99.7 F H 119 H 10 L 100 07/15/24 20:00 113/79 07/15/24 20:00 113/79 07/15/24 20:00 98.6 F 115 H 10 L 100 07/15/24 20:00 Mechanical Vent 50 07/15/24 20:00 50 07/15/24 19:45 105/74 07/15/24 19:45 105/74 07/15/24 19:43 109 H 21 100 50 07/15/24 19:36 98.6 F 113 H 18 100 07/15/24 19:30 114/67 07/15/24 19:30 92.7 F L 104 H 28 H 100 07/15/24 19:00 106/75 07/15/24 19:00 106/75 07/15/24 19:00 106/75 07/15/24 19:00 87.8 F L 92 H 10 L 100 07/15/24 18:24 Mechanical Vent 50 07/15/24 18:21 88.5 F L 92 H 12 100 07/15/24 18:15 112/70 07/15/24 18:15 91.9 F L 117 H 11 L 100 07/15/24 18:12 90.3 F L 108 H 10 L 100 07/15/24 18:00 104/69 07/15/24 18:00 97.7 F 112 H 12 100 07/15/24 17:45 97.7 F 107 H 12 100 07/15/24 17:45 128/86 07/15/24 17:39 97.7 F 106 H 18 100 07/15/24 17:39 50 07/15/24 17:30 111/75 07/15/24 17:30 111/75 07/15/24 17:15 99/69 L 07/15/24 17:15 105 H 11 L 100 07/15/24 17:12 113 H 12 100 PG Care Time/CCT Total # of Minutes Spent Total Time Spent with Patient: Total time spent is greater than 50% in coordination of care (as documented) at patient's floor/unit and/or counseling patient: Coding Level of Care Code 00852 CRITICAL CARE 1ST 30-74M Diagnoses STEMI (ST elevation myocardial infarction) I21.3
[2024-07-16 05:55] LABS: Chol HDL Ratio 3.2 (0-5); Cholesterol 95 mg/dl (0-200); HDL Cholesterol 30 mg/dl; LDL Cholesterol Calculated 46 mg/dl; Magnesium 1.3 mg/dl (1.7-2.4); Triglycerides 95 mg/dl (0-150); VLDL Cholesterol 19 mg/dl (0-30)
[2024-07-16 06:19] LABS: Thyroid Stimulating Hormone 2.213 uIu/ml (0.300-4.500)
[2024-07-16 06:24] LABS: Troponin I High Sensitivity > 270270.0 pg/ml (0-14)
[2024-07-16] MEDS ORDERED: ATROPINE SULFATE 1% OP SOLN 5 ML BTL SL PRN (07:12)
[2024-07-16] MEDS ORDERED: ONDANSETRON INJ 2 MG/ML 2 ML VIAL IV PRN (07:12)
[2024-07-16] MEDS ORDERED: LORazepam 2 MG/1 ML VIAL IV PRN (07:12)
[2024-07-16] MEDS ORDERED: GLYCOPYRROLATE 0.2 MG/ML VIAL IV PRN (07:12)
[2024-07-16] MEDS: MoRPHine SULFATE 4 MG/ML 1 ML CARP\\VIAL IV PRN (07:34)
[2024-07-16] MEDS: LORazepam 2 MG/1 ML VIAL IV PRN (07:35)
[2024-07-16 07:37] LABS: Estimated Average Glucose 131 mg/dl; Hemoglobin A1C 6.2 % (4.5-5.6)
--- NOTE | 2024-07-16 08:16 | Death Pronouncement Note ---
Date of Service July 16, 2024 Pronouncement Note Admission Date Admission Date: July 15, 2024 Date and Time of Date of : 07/16/24 Time of : 08:10 PCOD Preliminary cause of : Coronary artery disease Contributing Factors (1) STEMI (ST elevation myocardial infarction): (2) Cardiac arrest: (3) HLD (hyperlipidemia): (4) Hypertension: (5) Lupus (systemic lupus erythematosus): (6) PAUL (acute kidney injury): (7) Diabetes mellitus: (8) Lupus anticoagulant disorder: (9) CKD (chronic kidney disease) stage 3, GFR 30-59 ml/min: Hospital Course Hospital Course: Patient is a 64-year-old female who presented to the emergency department and was diagnosed with an ST elevation [place]. Prior to formal coronary angiography patient suffered a cardiac arrest which required intubation and CPR and multiple rounds of ACLS medications. Ultimately the patient was able to undergo percutaneous coronary intervention. Subsequent to the coronary intervention the patient remained in significant cardiogenic shock requiring multiple pressor agents. Further discussion with the patient's family stated she would not want to undergo heroic efforts including subsequent CPR in event of cardiac arrest nor mechanical circulatory support. Decision was made to transition to comfort measures and compassionately extubate the patient when family members are present. Approximately 730 all family members arrived and we proceeded with compassionate extubation and discontinuation of life-sustaining treatments. The patient at 8:10 AM with family members present at the bedside. Additional Data Confirmation of : no pulse, no respirations, no heart sounds and pupils fixed and dilated Family: at bedside Attending physician: Mat Sethi MD Coding Level of Care Code 61587 IN/OBS DISCH 30 MIN/LESS Diagnoses STEMI (ST elevation myocardial infarction) I21.3 Cardiac arrest I46.9 HLD (hyperlipidemia) E78.5 Hypertension I10 Lupus (systemic lupus erythematosus) M32.9 PAUL (acute kidney injury) N17.9 Diabetes mellitus E11.9 Lupus anticoagulant disorder D68.62 CKD (chronic kidney disease) stage 3, GFR 30-59 ml/min N18.30
[2024-07-16] MEDS ORDERED: ASPIRIN 81 MG ECTAB PO SCH (09:00)
[2024-07-16] MEDS ORDERED: TICAGRELOR 90 MG TAB PO SCH (09:00)
[2024-07-16] MEDS ORDERED: PANTOprazole 40 MG TAB PO SCH (09:00)
--- NOTE | 2024-07-16 10:02 | Discharge Summary ---
Date of Service July 16, 2024 Admission HPI Per Admitting Provider This is a 64-year-old female with past medical history of anemia, PAUL, hypothyroidism, type 2 diabetes, CKD stage III, cirrhosis who presented to the ER as a heart alert on 07/15/2024. The patient awoke from bed this morning and got up around 10 AM. She then developed significant pressure sensation in her substernal chest area. Symptoms persisted and so she called 911. She was found to have an EKG with [facility] in leads V2 through V6. She was given 324 mg of oral aspirin and nitroglycerin. She was also given fentanyl while in the ED with little relief in her chest pain. She is on Coumadin for history of portal vein thrombosis. She denied any nausea or vomiting at time of encounter. Past cardiac history includes atypical chest pain and a catheterization at [facility] approx. 10 years ago. While in the ED patient normotensive, slightly tachycardic with pulse of 91, O2 saturation 98% on room air. She appeared comfortable in bed. Principal Diagnosis ST elevation MS Cardiogenic shock Acute kidney injury on CKD stage III Cirrhosis Gastric and esophageal varices Portal vein thrombosis Diabetes mellitus Benign essential hypertension Hyperlipidemia Discharge Exam Patient Discharge Data Allergies Allergy/AdvReac Type Severity Reaction Status Date / Time adhesive Allergy Intermediate Rash Verified 06/12/24 13:56 enoxaparin [From Lovenox] Allergy Intermediate Rash Verified 06/12/24 13:56 NSAIDS (Non-Steroidal Allergy Unknown can't take Verified 06/12/24 13:56 Anti-Inflamma d/t taking a blood thinner nadolol AdvReac Severe Seizure Verified 06/12/24 13:56 amoxicillin [From Augmentin] AdvReac Mild yeast Verified 06/12/24 13:56 infection clavulanic acid AdvReac Mild yeast Verified 06/12/24 13:56 [From Augmentin] infection Consultations 07/15/24 12:25 ED Decision to Admit Stat 07/15/24 12:35 Consult Dust Box Tender Routine 07/16/24 03:15 Burn CD for patient Stat Procedures Performed Operation Date: 07/16/24 03:30 Actual Procedures p Cineradiography w/Routine Exam - Bradford Mora MD s Cath, Right and Left Heart - Bradford Mora MD Ordered Studies 07/15/24 12:28 CL Cath Imgs for PACS use only Stat 07/16/24 03:05 CL Cath Imgs for PACS use only Routine Hospital Course (1) STEMI (ST elevation myocardial infarction): This is a 64-year-old female who presented to the emergency room with ST elevation MS. Patient was taken to the Waste [facility]. While in the [facility] prior to angiography, patient had a cardiac arrest with V-fib requiring intubation, CPR, multiple rounds of ACLS medications. Patient was ultimately able to undergo LAD stent placement and was transferred to the ICU on multiple pressors for cardiogenic shock. Despite all efforts, her condition continued to decline and her blood pressure continued to drop despite multiple pressors. A discussion was held with the patient's family and decision was made to transition to comfort measures and compassionately extubate with the family members were present. The patient finally at 8:10 AM with family members at the bedside. I personally met with the family and passed my condolences Total Time Total Time Spent Total Time Spent (In Minutes): 35 Discharge Plan Discharge Items Patient Disposition: Other Date/Time: 07/16/24 08:10
[2024-07-16] MEDS ORDERED: CEFEPIME 2000MG 2,000 MG/20 ML SYR IV SCH (12:00)
[2024-07-17 06:55] LABS: iSTAT Arterial Blood Gas HCO3 21 meg/L (19-24); iSTAT Arterial Blood Gas pCO2 48 mmHg (35-46); iSTAT Arterial Blood Gas pH 7.26 (7.35-7.45); iSTAT Arterial Blood Gas pO2 405 mmHg (80-95); iSTAT Carbon Dioxide 23 mmol/L (24-31); iSTAT Hematocrit 33 % (37-47); iSTAT Hemoglobin 11.2 g/dl (12.0-16.0); iSTAT Potassium 3.1 mmol/L (3.3-5.0); iSTAT Sodium 143 mmol/L (135-144)
[2024-07-17 09:40] LABS: iSTAT Arterial Blood Gas HCO3 17 meg/L (19-24); iSTAT Arterial Blood Gas pCO2 48 mmHg (35-46); iSTAT Arterial Blood Gas pH 7.16 (7.35-7.45); iSTAT Arterial Blood Gas pO2 93 mmHg (80-95); iSTAT Carbon Dioxide 19 mmol/L (24-31); iSTAT Hematocrit 29 % (37-47); iSTAT Hemoglobin 9.9 g/dl (12.0-16.0); iSTAT Potassium 3.6 mmol/L (3.3-5.0); iSTAT Sodium 144 mmol/L (135-144)
[2024-07-17 09:41] LABS: iSTAT Arterial Blood Gas HCO3 20 meg/L (19-24); iSTAT Arterial Blood Gas pCO2 65 mmHg (35-46); iSTAT Arterial Blood Gas pH 7.11 (7.35-7.45); iSTAT Arterial Blood Gas pO2 29 mmHg (80-95); iSTAT Carbon Dioxide 22 mmol/L (24-31); iSTAT Hematocrit 30 % (37-47); iSTAT Hemoglobin 10.2 g/dl (12.0-16.0); iSTAT Potassium 3.7 mmol/L (3.3-5.0); iSTAT Sodium 144 mmol/L (135-144)
[2024-07-17] MEDS ORDERED: INFLUENZA VACC TS2024-25(65y+)/PF (IIV3) 0.5mL Syr IM ONE (21:00)
--- NOTE | 2024-07-17 22:08 | Electrocardiogram Report ---
Test Reason : Blood Pressure : */* mmHG Vent. Rate : 94 BPM Atrial Rate : 94 BPM P-R Int : 158 ms QRS Dur : 84 ms QT Int : 420 ms P-R-T Axes : 65 -76 55 degrees QTcB Int : 525 ms Sinus rhythm with frequent Premature ventricular complexes and premature atrial complexes Low voltage QRS Right bundle branch block Left anterior fascicular block ST elevation, consider anterior and lateral injury/STEMI Anterior infarct Abnormal ECG When compared with ECG of 27-Jan-2024 11:58, Premature atrial complexes are now Present Premature ventricular complexes are now Present ST elevation now present in lateral and anterior leads Confirmed by Clayton Giraldo ([id number]) on 07/17/2024 10:08:17 PM Referred By: REFERRED SELF Confirmed By: Clayton Giraldo
--- NOTE | 2024-07-17 22:10 | Electrocardiogram Report ---
Test Reason : Blood Pressure : */* mmHG Vent. Rate : 107 BPM Atrial Rate : 107 BPM P-R Int : 174 ms QRS Dur : 86 ms QT Int : 362 ms P-R-T Axes : 87 -82 82 degrees QTcB Int : 483 ms Sinus tachycardia Low voltage QRS Left anterior fascicular block Anterior infarct Abnormal ECG When compared with ECG of 15-Jul-2024 12:10, Premature ventricular complexes are no longer Present Serial changes of evolving Anterior infarct Present ST less elevated in Anterior leads and lateral leads Premature atrial complexes are no longer Present Right bundle branch block is no longer Present Confirmed by Clayton Giraldo ([id number]) on 07/17/2024 10:09:37 PM Referred By: REFERRED SELF Confirmed By: Clayton Giraldo
== END 2024-07-16 10:42 | disposition expired | DRG 321 ==
LOC: ED 12:07 → CC 12:37 → 1E 12:38